=== PATIENT | male | born 1930 | race Two or more races ===

== ENCOUNTER 2017-10-07 20:27 | Inpatient (IN) | payer MEDICARE, OTHER ==
[~2017-10-07] VITALS: Ht 162.6 cm; Wt 66.1 kg
[2017-10-07 20:30] VITALS: BP 140/68
[2017-10-07] MEDS ORDERED: NS 1000ml 1,900 ML IVLG ONE (20:45)
[2017-10-07] MEDS ORDERED: Clindamycin 900mg 50 ML IVPB ONE (20:45)
[2017-10-07 21:00] VITALS: BP 143/49
[2017-10-07 21:13] LABS: BASOPHILS % (AUTO) 0.7 % (0.0-2.0); EOSINOPHILS % (AUTO) 5.1 % (0.0-3.0); HEMATOCRIT 29.6 % (42.0-52.0); HEMOGLOBIN 10.1 G/DL (14.2-18.0); LYMPHOCYTES % (AUTO) 19.7 % (20.0-45.0); MEAN CORPUSCULAR VOLUME 86 FL (80-99); MONOCYTES % (AUTO) 8.7 % (1.0-10.0); NEUTROPHILS % (AUTO) 65.7 % (45.0-75.0); PLATELET COUNT 252 K/UL (150-450); RED BLOOD COUNT 3.44 M/UL (4.70-6.10); RED CELL DISTRIBUTION WIDTH 16.3 % (11.6-14.8)
[2017-10-07 21:22] LABS: INR 2.2 (0.9-1.1)
[2017-10-07 21:23] LABS: ANION GAP 8 mmol/L (5-15); BLOOD UREA NITROGEN 28 mg/dL (7-18); CALCIUM 8.5 MG/DL (8.5-10.1); CARBON DIOXIDE 27 MMOL/L (21-32); CHLORIDE 99 MMOL/L (98-107); CREATININE 2.2 MG/DL (0.55-1.30); SODIUM 134 MMOL/L (136-145)
[2017-10-07 21:33] LABS: ALANINE AMINOTRANSFERASE 16 U/L (12-78); ALBUMIN 2.4 G/DL (3.4-5.0); ALBUMIN/GLOBULIN RATIO 0.5 (1.0-2.7); ALKALINE PHOSPHATASE 121 U/L (46-116); ASPARTATE AMINO TRANSFERASE 26 U/L (15-37); BILIRUBIN,TOTAL 0.7 MG/DL (0.2-1.0); CREATINE KINASE 24 U/L (26-308)
--- NOTE | 2017-10-07 21:37 | Diagnostic Imaging Report ---
EXAM: XR Chest, 1 View CLINICAL HISTORY: DYSPNEA TECHNIQUE: Frontal view of the chest. COMPARISON: No relevant prior studies available. FINDINGS: Lungs: Nonspecific lower lobe consolidations. Interstitial edema is present. Pleural space: Bilateral pleural effusions, right greater than left. No pneumothorax. Heart: Cardiomegaly. Pacemaker leads in place. Mediastinum: No acute or suspicious findings. Bones/joints: No acute or suspicious findings. IMPRESSION: 1. Bilateral pleural effusions, right greater than left. 2. Nonspecific lower lobe consolidations. Atelectasis versus infiltrate. 3. Interstitial edema is present.
--- NOTE | 2017-10-07 21:43 | Emergency Room Report ---
History of Present Illness General Chief Complaint: Dyspnea/Respdistress Source: Patient, Family Member, EMS Present Illness HPI Patient presents with fever. Also has cough and a Smith catheter in. He said difficulty with multiple antibiotic allergies. In addition to that he has severe congestive heart failure. He denies any dyspnea at this time however complains about a cough. He denies any pain at this time. Poor historian. Multiple allergies. On coumadin. Apparently, troponin has been elevated in past. Last admitted 2006 here. Allergies: Coded Allergies: ADHESIVE TAPE (Unverified Allergy, Unknown, 10/07/17) BICALUTAMIDE (Unverified Allergy, Unknown, 10/07/17) CEFAZOLIN (Unverified Allergy, Unknown, 10/07/17) CEPHALEXIN (Unverified Allergy, Unknown, 10/07/17) DOXYCYCLINE (Unverified Allergy, Unknown, 10/07/17) FUROSEMIDE (Unverified Allergy, Unknown, 10/07/17) PENICILLINS (Unverified Allergy, Unknown, 10/07/17) PHENYTOIN (Unverified Allergy, Unknown, 10/07/17) SULFA (SULFONAMIDE ANTIBIOTICS) (Unverified Allergy, Unknown, 10/07/17) VANCOMYCIN (Unverified Allergy, Unknown, 10/07/17) Uncoded Allergies: PIPERACILLIN-TAZOBACTAM (Allergy, Unknown, 10/07/17) Patient History Past Medical History: see triage record Social History: Denies: alcohol use Social History 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 Nursing Documentation: PMH: Agreed; PSxH: Agreed Nursing Documentation-PMH Hx Hypertension: Yes Hx Cancer: Yes - Prostace Ca Review of Systems All Other Systems: limited Physical Exam Vital Signs Date Time Temp Pulse Resp B/P (MAP) Pulse Ox O2 Delivery O2 Flow Rate FiO2 10/07/17 20:21 101.3 73 20 166/52 95 Nasal Cannula 3.0 101.3 Sp02 EP Interpretation: reviewed, abnormal - interpreted as low by me General Appearance: other - sallo, Chronically Ill Head: normocephalic Eyes: bilateral eye normal inspection, bilateral eye PERRL ENT: moist mucus membranes Neck: supple Respiratory: decreased breath sounds, crackles, rales Cardiovascular #1: regular rate, rhythm Cardiovascular #2: 2+ radial (R) Gastrointestinal: normal inspection, normal bowel sounds, non tender, no mass, non-distended Genitourinary: other - smith Musculoskeletal: back normal, normal range of motion, no calf tenderness Neurologic: alert, sensory intact, speech normal, motor weakness - diffuse, oriented - X2 Psychiatric: depressed affect Skin: normal inspection, warm/dry Medical Decision Making Diagnostic Impression: Primary Impression: Sepsis Qualified Codes: A41.9 - Sepsis, unspecified organism Additional Impressions: Elevated troponin CHF (congestive heart failure) Qualified Codes: I50.43 - Acute on chronic combined systolic (congestive) and diastolic (congestive) heart failure Renal insufficiency UTI (urinary tract infection) Qualified Codes: T83.511A - Infection and inflammatory reaction due to indwelling urethral catheter, initial encounter; N39.0 - Urinary tract infection , site not specified ER Course The patient presents with fever. Differential includes sepsis, pneumonia, urinary tract infection amongst others. The fact he has an indwelling Smith makes this a high suspicion. He be evaluated with blood cultures, EKG chest x- ray. He'll be treated with IV hydration and also antibiotics. Family states he has problems with congestive heart failure and therefore IV hydration is terminated before was started. She has multiple drug allergies and therefore we are starting clindamycin and ciprofloxacin. EKG without acute injury. Chest x-ray with bilateral infiltrates and congestive heart failure. White count is normal. Lactate is normal. Urinalysis with too numerous to count white blood cells. + troponin. Discussed aspirin with family. Giving small dose in ED (on Coumadin). Improved with adequate oxygenation on O2. Discussed with Dr. Howard and family. Laboratory Tests Test 10/07/17 20:56 10/07/17 21:40 White Blood Count 9.0 K/UL (4.8-10.8) Red Blood Count 3.44 M/UL (4.70-6.10) L Hemoglobin 10.1 G/DL (14.2-18.0) L Hematocrit 29.6 % (42.0-52.0) L Mean Corpuscular Volume 86 FL (80-99) Mean Corpuscular Hemoglobin 29.4 PG (27.0-31.0) Mean Corpuscular Hemoglobin Concent 34.1 G/DL (32.0-36.0) Red Cell Distribution Width 16.3 % (11.6-14.8) H Platelet Count 252 K/UL (150-450) Mean Platelet Volume 5.7 FL (6.5-10.1) L Neutrophils (%) (Auto) 65.7 % (45.0-75.0) Lymphocytes (%) (Auto) 19.7 % (20.0-45.0) L Monocytes (%) (Auto) 8.7 % (1.0-10.0) Eosinophils (%) (Auto) 5.1 % (0.0-3.0) H Basophils (%) (Auto) 0.7 % (0.0-2.0) Prothrombin Time 23.4 SEC (9.30-11.50) H Prothrombin Time INR 2.2 (0.9-1.1) H PTT 40 SEC (23-33) H Sodium Level 134 MMOL/L (136-145) L Potassium Level 3.0 MMOL/L (3.5-5.1) L Chloride Level 99 MMOL/L (98-107) Carbon Dioxide Level 27 MMOL/L (21-32) Anion Gap 8 mmol/L (5-15) Blood Urea Nitrogen 28 mg/dL (7-18) H Creatinine 2.2 MG/DL (0.55-1.30) H Estimate Glomerular Filtration Rate mL/min (>60) Glucose Level 124 MG/DL (74-106) H Lactic Acid Level 1.60 mmol/L (0.4-2.0) Calcium Level 8.5 MG/DL (8.5-10.1) Total Bilirubin 0.7 MG/DL (0.2-1.0) Aspartate Amino Transferase (AST) 26 U/L (15-37) Alanine Aminotransferase (ALT) 16 U/L (12-78) Alkaline Phosphatase 121 U/L (46-116) H Total Creatine Kinase 24 U/L (26-308) L Troponin I 0.092 ng/mL (0.000-0.056) Pro-B-Type Natriuretic Peptide 40994 pg/mL (0-125) H Total Protein 7.6 G/DL (6.4-8.2) Albumin 2.4 G/DL (3.4-5.0) L Globulin 5.2 g/dL Albumin/Globulin Ratio 0.5 (1.0-2.7) L Urine Color Pale yellow Urine Appearance Slightly cloudy Urine pH 6.5 (4.5-8.0) Urine Specific [place] 1.010 (1.005-1.035) Urine Protein 2+ (NEGATIVE) H Urine Glucose (UA) Negative (NEGATIVE) Urine Ketones Negative (NEGATIVE) Urine Occult Blood 2+ (NEGATIVE) H Urine Nitrite Negative (NEGATIVE) Urine Bilirubin Negative (NEGATIVE) Urine Urobilinogen Normal MG/DL (0.0-1.0) Urine Leukocyte Esterase 3+ (NEGATIVE) H Urine RBC 2-4 /HPF (0 - 0) H Urine WBC Tntc /HPF (0 - 0) H Urine Squamous Epithelial Cells Occasional /LPF Urine Bacteria Occasional /HPF (NONE) EKG Diagnostic Results Rate: normal Rhythm: NSR ST Segments: no acute changes - St infersions inferolaterally Rhythm Strip Diag. Results EP Interpretation: yes Rhythm: NSR, no PVC's, no ectopy Chest X-Ray Diagnostic Results Chest X-Ray Diagnostic Results : Chest X-Ray Ordered: Yes # of Views/Limited/Complete: 1 View Indication: Other EP Interpretation: Yes Interpretation: no pneumothorax, other - inc cor and bilat infiltrates/chf Last Vital Signs Date Time Temp Pulse Resp B/P (MAP) Pulse Ox O2 Delivery O2 Flow Rate FiO2 10/07/17 23:40 99.8 68 24 138/72 100 Nasal Cannula 2.0 99.8 68 Status: improved Disposition: ADMITTED INPATIENT Condition: Serious Referrals: Fernando Howard MD (PCP) Jose Luis Renee M.D. Oct 07, 2017 21:43
[2017-10-07 22:00] VITALS: BP 141/68
[2017-10-07 22:40] LABS: APPEARANCE,URINE SLIGHTLY CLOUDY; BILIRUBIN, URINE NEGATIVE (NEGATIVE); COLOR,URINE PALE YELLOW; GLUCOSE, URINE (UA) NEGATIVE (NEGATIVE); KETONES,URINE NEGATIVE (NEGATIVE); LEUKOCYTE ESTERASE ,URINE 3+ (NEGATIVE); NITRITE,URINE NEGATIVE (NEGATIVE); PH,URINE 6.5 (4.5-8.0); PROTEIN,URINE 2+ (NEGATIVE); UROBILINOGEN,URINE NORMAL MG/DL (0.0-1.0)
[2017-10-07] MEDS ORDERED: Aspirin Baby 81mg ONE (22:54)
[2017-10-07] MEDS: Aspirin Baby 81mg ORAL SCH (22:56)
[2017-10-07 23:00] VITALS: BP 138/72
[2017-10-08] VITALS: BP 125/64
[2017-10-08] MEDS: BETAMETHASONE 0.1% TOPIC SCH (01:00)
[2017-10-08] MEDS ORDERED: LEVOTHYROXINE175 MCG ORAL (01:22)
[2017-10-08] MEDS ORDERED: EDECRIN25 MG ORAL (01:22)
[2017-10-08] MEDS ORDERED: ZYTIGA250 MG ORAL (01:22)
[2017-10-08] MEDS ORDERED: NORVASC2.5 MG ORAL (01:22)
[2017-10-08] MEDS ORDERED: POTASSIUM CHLO20 ME2 ORAL (01:22)
[2017-10-08] MEDS ORDERED: DILTIAZEM 24HR120 M2 PO (01:22)
[2017-10-08] MEDS ORDERED: VITAMIN D250000 UNI1 ORAL (01:22)
[2017-10-08] MEDS ORDERED: LACTULOSE10 GM/154 PO (01:22)
[2017-10-08] MEDS ORDERED: METOPROLOL SUCC50 MG ORAL (01:22)
[2017-10-08] MEDS ORDERED: PREDNISONE5 MG ORAL (01:22)
[2017-10-08] MEDS ORDERED: ZANTAC150 MG ORAL (01:22)
[2017-10-08] MEDS ORDERED: VALACYCLOVIR500 MG ORAL (01:22)
[2017-10-08] MEDS ORDERED: LYRICA150 MG ORAL (01:22)
[2017-10-08] MEDS ORDERED: COUMADIN2.5 MG ORAL (01:22)
[2017-10-08] MEDS ORDERED: DIGOXIN125 MCG ORAL (01:22)
[2017-10-08] MEDS ORDERED: PRAVASTATIN SOD40 M1 ORAL (01:22)
[2017-10-08] MEDS ORDERED: COLACE100 MG ORAL (01:22)
[2017-10-08] MEDS ORDERED: CALCITRIOL0.25 MCG PO (01:22)
[2017-10-08] MEDS ORDERED: TYLENOL EXTRA500 MG ORAL (01:41)
[2017-10-08] MEDS ORDERED: Ipratropium 0.02% Inh Soln 2.5ml UD HHN PRN (02:15)
[2017-10-08] MEDS ORDERED: Vitamin D 50,000 units cap ORAL SCH (02:15)
[2017-10-08] MEDS ORDERED: valACYclovir HCL 500mg tab ORAL SCH (02:15)
[2017-10-08 04:00] VITALS: BP 138/58
[2017-10-08] MEDS ORDERED: Clindamycin 600mg 50 ML IV SCH (06:00)
[2017-10-08 08:00] VITALS: BP 116/45
[2017-10-08] MEDS ORDERED: dilTIAZem HCl CD 120mg cap ORAL SCH (09:00)
[2017-10-08] MEDS ORDERED: Docusate 100mg cap ORAL SCH (09:00)
[2017-10-08] MEDS ORDERED: Calcitriol 0.25mcg Cap ORAL SCH (09:00)
[2017-10-08] MEDS ORDERED: Nephrovite tab (Rena-Vite) ORAL SCH (09:00)
[2017-10-08] MEDS: Lyrica 50mg cap ORAL SCH ×2 (10:12→17:43)
--- NOTE | 2017-10-08 10:13 | Diagnostic Imaging Report ---
Single frontal view INDICATION: Chest pain COMPARISON: Chest x-ray dated 10/07/17 FINDINGS: Single frontal view of the chest is obtained. Stable left chest wall pacemaker. Enlarged cardiac size. Stable small to moderate bilateral pleural effusions. Improved aeration within the lungs with continued demonstration of bilateral lower lung zone opacities. Bony elements are within normal limits. IMPRESSION: Stable left chest wall pacemaker. Enlarged cardiac size. Stable small to moderate bilateral pleural effusions. Improved aeration within the lungs with continued demonstration of bilateral lower lung zone opacities.
[2017-10-08] MEDS ORDERED: Fleet's Mineral Oil Enema RECTAL PRN (10:15)
[2017-10-08] MEDS: Aspirin Baby 81mg ORAL SCH (10:19)
[2017-10-08] MEDS: Digoxin 0.125mg tab ORAL SCH (10:19)
[2017-10-08] MEDS: Metoprolol Succinate XL 50mg tab ORAL SCH ×2 (10:19→17:42)
[2017-10-08] MEDS: Lactulose 20gm/30ml UDC ORAL PRN (11:23)
[2017-10-08 12:00] VITALS: BP 150/81
[2017-10-08] MEDS: Meropenem 500 MG in NS 55 ML IVPB SCH ×2 (13:08→21:28)
--- NOTE | 2017-10-08 14:32 | Consultation ---
Consult Note Consult Note Cardiology for Dr. Lind Full consult dictated # [id number] Dina Fink MD Oct 08, 2017 14:32
[2017-10-08 14:51] LABS: HEMOGLOBIN 8.5 G/DL (14.2-18.0); MEAN CORPUSCULAR VOLUME 87 FL (80-99); PLATELET COUNT 210 K/UL (150-450); RED BLOOD COUNT 2.98 M/UL (4.70-6.10); RED CELL DISTRIBUTION WIDTH 16.3 % (11.6-14.8); WHITE BLOOD COUNT 7.4 K/UL (4.8-10.8)
[2017-10-08 15:03] LABS: ANION GAP 11 mmol/L (5-15); BLOOD UREA NITROGEN 31 mg/dL (7-18); CALCIUM 8.1 MG/DL (8.5-10.1); CARBON DIOXIDE 26 MMOL/L (21-32); CHLORIDE 102 MMOL/L (98-107); CREATININE 2.4 MG/DL (0.55-1.30); PHOSPHORUS 3.7 MG/DL (2.5-4.9); POTASSIUM 3.4 MMOL/L (3.5-5.1); SODIUM 139 MMOL/L (136-145)
[2017-10-08 15:35] LABS: INR 4.1 (0.9-1.1)
[2017-10-08 16:00] VITALS: BP 123/48
--- NOTE | 2017-10-08 16:40 | History and Physical ---
History of Present Illness General Date patient seen: Oct 08, 2017 Reason for Hospitalization: Dyspnea/Respdistress Present Illness Allergies: Coded Allergies: ADHESIVE TAPE (Unverified Allergy, Unknown, 10/07/17) BICALUTAMIDE (Unverified Allergy, Unknown, 10/07/17) CEFAZOLIN (Unverified Allergy, Unknown, 10/07/17) CEPHALEXIN (Unverified Allergy, Unknown, 10/07/17) DOXYCYCLINE (Unverified Allergy, Unknown, 10/07/17) FUROSEMIDE (Unverified Allergy, Unknown, 10/07/17) PENICILLINS (Unverified Allergy, Unknown, 10/07/17) PHENYTOIN (Unverified Allergy, Unknown, 10/07/17) PIPERACILLIN (Unverified Allergy, Unknown, 10/08/17) copied from uncoded section SULFA (SULFONAMIDE ANTIBIOTICS) (Unverified Allergy, Unknown, 10/07/17) TAZOBACTAM (Unverified Allergy, Unknown, 10/08/17) copied from uncoded section VANCOMYCIN (Unverified Allergy, Unknown, 10/07/17) Medication History Scheduled Abiraterone Acetate (Zytiga), 500 MG ORAL DAILY, (Reported) Amlodipine Besylate (Norvasc), 2.5 MG ORAL DAILY, (Reported) Calcitriol (Calcitriol), 0.25 MCG PO DAILY, (Reported) Digoxin* (Digoxin*), 125 MCG ORAL DAILY, (Reported) Docusate Sodium* (Colace*), 100 MG ORAL DAILY, (Reported) Ergocalciferol (Vitamin D2)* (Vitamin D*), 50,000 UNIT ORAL ONCE A WEEK, ( Reported) Ethacrynic Acid* (Edecrin*), 50 MG ORAL TWICE A DAY, (Reported) Levothyroxine Sodium (Levothyroxine Sodium), 75 MCG ORAL DAILY, (Reported) Metoprolol Succinate* (Metoprolol Succinate*), 25 MG ORAL BID, (Reported) Potassium Chloride (Potassium Chloride), 20 MEQ ORAL TWICE A DAY, (Reported) Pravastatin Sod (Pravastatin Sod), 20 MG ORAL BEDTIME, (Reported) Prednisone (Prednisone), 5 MG ORAL DAILY, (Reported) Pregabalin (Lyrica), 50 MG ORAL TWICE A DAY, (Reported) Ranitidine Hcl* (Zantac*), 150 MG ORAL HS, (Reported) Valacyclovir Hcl* (Valtrex*), 250 MG ORAL ONCE A WEEK, (Reported) Warfarin Sod* (Coumadin*), 2.5 MG ORAL HS, (Reported) Scheduled PRN Acetaminophen* (Tylenol Extra Strength*), 650 MG ORAL Q6H PRN for Mild Pain/ Temp > 100.5, (Reported) Lactulose (Lactulose), 10 GM PO for Constipation, (Reported) Miscellaneous Medications Diltiazem HCl (Diltiazem 24HR Cd), 120 MG PO, (Reported) Patient History Healthcare decision maker Resuscitation status Full Code Advanced Directive on File Physical Exam Last 24 Hour Vital Signs Date Time Temp Pulse Resp B/P (MAP) Pulse Ox O2 Delivery O2 Flow Rate FiO2 10/08/17 16:00 61 10/08/17 16:00 97.6 60 21 123/48 98 Nasal Cannula 2.0 97.6 10/08/17 12:00 99.0 115 21 150/81 96 Nasal Cannula 2.0 99.0 10/08/17 12:00 63 10/08/17 10:19 66 116/45 10/08/17 10:19 66 10/08/17 10:18 66 116/45 10/08/17 10:16 66 116/45 10/08/17 08:00 98.0 66 21 116/45 99 Nasal Cannula 2.0 98.0 10/08/17 08:00 65 10/08/17 04:00 62 10/08/17 04:00 97.7 60 20 138/58 94 Nasal Cannula 2.0 97.7 10/08/17 00:00 66 10/08/17 00:00 98.8 72 19 125/64 95 Nasal Cannula 2.0 98.8 10/07/17 23:40 99.8 68 24 138/72 100 Nasal Cannula 2.0 99.8 68 10/07/17 23:00 99.8 68 24 138/72 100 Nasal Cannula 2.0 99.8 10/07/17 22:00 99.7 66 23 141/68 100 Nasal Cannula 2.0 99.7 10/07/17 21:34 102.3 10/07/17 21:00 73 26 Nasal Cannula 2.0 10/07/17 21:00 102.3 71 24 143/49 95 Nasal Cannula 2.0 102.3 10/07/17 20:30 101.0 68 24 140/68 94 Nasal Cannula 101.0 10/07/17 20:21 101.3 73 20 166/52 95 Nasal Cannula 3.0 101.3 Intake and Output 10/07/17 10/08/17 19:00 07:00 Intake Total 480 ml Output Total 450 ml Balance 30 ml Intake Oral 480 ml IV Total 0 ml Output Urine Total 450 ml Laboratory Tests Test 10/07/17 20:56 10/07/17 21:40 10/08/17 14:36 White Blood Count 9.0 K/UL (4.8-10.8) 7.4 K/UL (4.8-10.8) Red Blood Count 3.44 M/UL (4.70-6.10) L 2.98 M/UL (4.70-6.10) L Hemoglobin 10.1 G/DL (14.2-18.0) L 8.5 G/DL (14.2-18.0) L Hematocrit 29.6 % (42.0-52.0) L 26.0 % (42.0-52.0) L Mean Corpuscular Volume 86 FL (80-99) 87 FL (80-99) Mean Corpuscular Hemoglobin 29.4 PG (27.0-31.0) 28.6 PG (27.0-31.0) Mean Corpuscular Hemoglobin Concent 34.1 G/DL (32.0-36.0) 32.8 G/DL (32.0-36.0) Red Cell Distribution Width 16.3 % (11.6-14.8) H 16.3 % (11.6-14.8) H Platelet Count 252 K/UL (150-450) 210 K/UL (150-450) Mean Platelet Volume 5.7 FL (6.5-10.1) L 6.4 FL (6.5-10.1) L Neutrophils (%) (Auto) 65.7 % (45.0-75.0) % (45.0-75.0) Lymphocytes (%) (Auto) 19.7 % (20.0-45.0) L % (20.0-45.0) Monocytes (%) (Auto) 8.7 % (1.0-10.0) % (1.0-10.0) Eosinophils (%) (Auto) 5.1 % (0.0-3.0) H % (0.0-3.0) Basophils (%) (Auto) 0.7 % (0.0-2.0) % (0.0-2.0) Prothrombin Time 23.4 SEC (9.30-11.50) H 43.7 SEC (9.30-11.50) H Prothromb Time International Ratio 2.2 (0.9-1.1) H 4.1 (0.9-1.1) H Activated Partial Thromboplast Time 40 SEC (23-33) H Sodium Level 134 MMOL/L (136-145) L 139 MMOL/L (136-145) Potassium Level 3.0 MMOL/L (3.5-5.1) L 3.4 MMOL/L (3.5-5.1) L Chloride Level 99 MMOL/L (98-107) 102 MMOL/L (98-107) Carbon Dioxide Level 27 MMOL/L (21-32) 26 MMOL/L (21-32) Anion Gap 8 mmol/L (5-15) 11 mmol/L (5-15) Blood Urea Nitrogen 28 mg/dL (7-18) H 31 mg/dL (7-18) H Creatinine 2.2 MG/DL (0.55-1.30) H 2.4 MG/DL (0.55-1.30) H Estimat Glomerular Filtration Rate mL/min (>60) mL/min (>60) Glucose Level 124 MG/DL (74-106) H 168 MG/DL (74-106) H Lactic Acid Level 1.60 mmol/L (0.4-2.0) Calcium Level 8.5 MG/DL (8.5-10.1) 8.1 MG/DL (8.5-10.1) L Total Bilirubin 0.7 MG/DL (0.2-1.0) Aspartate Amino Transf (AST/SGOT) 26 U/L (15-37) Alanine Aminotransferase (ALT/SGPT) 16 U/L (12-78) Alkaline Phosphatase 121 U/L (46-116) H Total Creatine Kinase 24 U/L (26-308) L Troponin I 0.092 ng/mL (0.000-0.056) 0.062 ng/mL (0.000-0.056) Pro-B-Type Natriuretic Peptide 25549 pg/mL (0-125) H Total Protein 7.6 G/DL (6.4-8.2) Albumin 2.4 G/DL (3.4-5.0) L Globulin 5.2 g/dL Albumin/Globulin Ratio 0.5 (1.0-2.7) L Urine Color Pale yellow Urine Appearance Slightly cloudy Urine pH 6.5 (4.5-8.0) Urine Specific [place] 1.010 (1.005-1.035) Urine Protein 2+ (NEGATIVE) H Urine Glucose (UA) Negative (NEGATIVE) Urine Ketones Negative (NEGATIVE) Urine Occult Blood 2+ (NEGATIVE) H Urine Nitrite Negative (NEGATIVE) Urine Bilirubin Negative (NEGATIVE) Urine Urobilinogen Normal MG/DL (0.0-1.0) Urine Leukocyte Esterase 3+ (NEGATIVE) H Urine RBC 2-4 /HPF (0 - 0) H Urine WBC Tntc /HPF (0 - 0) H Urine Squamous Epithelial Cells Occasional /LPF Urine Bacteria Occasional /HPF (NONE) Neutrophils % (Manual) Pending Lymphocytes % (Manual) Pending Platelet Estimate Pending Platelet Morphology Pending Phosphorus Level 3.7 MG/DL (2.5-4.9) Magnesium Level 2.1 MG/DL (1.8-2.4) Digoxin Level 1.1 NG/ML (0.5-2.0) Height (Feet): 5 Height (Inches): 4.00 Weight (Pounds): 138 Medications Current Medications Medications (Trade) Dose Ordered Sig/Bob Route PRN Reason Start Time Stop Time Status Last Admin Dose Admin Acetaminophen (Tylenol) 650 mg Q6H PRN ORAL Mild Pain/Temp > 100.5 10/08/17 02:15 11/07/17 02:14 10/08/17 08:07 Amlodipine Besylate (Norvasc) 2.5 mg DAILY ORAL 10/08/17 09:00 11/07/17 08:59 10/08/17 10:16 Aspirin (ASA) 81 mg DAILY ORAL 10/08/17 09:00 11/07/17 08:59 10/08/17 10:19 Betamethasone Valerate (Diprolene Cream) 1 applic DAILY TOPIC 10/08/17 09:00 11/07/17 08:59 Bisacodyl (Dulcolax) 10 mg DAILYPRN PRN RECTAL Constipation 10/08/17 10:15 11/07/17 10:14 Calcitriol (Rocatrol) 0.25 mcg DAILY ORAL 10/08/17 09:00 11/07/17 08:59 10/08/17 10:18 Digoxin (Lanoxin) 0.125 mg DAILY ORAL 10/08/17 09:00 11/07/17 08:59 10/08/17 10:19 Docusate Sodium (Colace) 100 mg DAILY ORAL 10/08/17 09:00 11/07/17 08:59 10/08/17 10:16 Ergocalciferol (Drisdol) 50,000 intlu We@0900 ORAL 10/12/17 09:00 11/11/17 08:59 Ipratropium [place] (Atrovent) 500 mcg Q4H PRN HHN Shortness of Breath 10/08/17 02:15 10/13/17 02:14 Iron Sucrose 100 mg/Sodium Chloride 60 ml @ 240 mls/hr BEDTIME IV 10/08/17 21:00 10/09/17 21:14 Lactulose (Cephulac) 20 gm DAILY PRN ORAL Constipation 10/08/17 02:15 11/07/17 02:14 10/08/17 11:23 Levothyroxine Sodium (Synthroid) 75 mcg DAILY@0630 ORAL 10/08/17 06:30 11/07/17 06:29 10/08/17 06:13 Meropenem 500 mg/ Sodium Chloride 55 ml @ 110 mls/hr EVERY 12 HOURS IVPB 10/08/17 12:30 10/13/17 12:29 10/08/17 13:08 Metoprolol Succinate (Toprol XL) 25 mg BID ORAL 10/08/17 09:00 11/07/17 08:59 10/08/17 10:19 Mineral Oil (Fleet's Mineral Oil Enema) 133 ml DAILY PRN RECTAL Constipation 10/08/17 10:15 11/07/17 10:14 Patient Own Medication (Patient's Own Med) 1 ea DAILY ORAL 10/08/17 09:00 11/07/17 08:59 Patient Own Medication (Patient's Own Med) 2 ea DAILY@0600 ORAL 10/09/17 06:00 11/08/17 05:59 Pravastatin Sodium (Pravachol) 20 mg BEDTIME ORAL 10/08/17 21:00 11/07/17 20:59 Prednisone (predniSONE) 5 mg DAILY@0600 ORAL 10/09/17 06:00 11/07/17 08:59 Pregabalin (Lyrica) 50 mg TWICE A DAY ORAL 10/08/17 09:00 11/07/17 08:59 10/08/17 10:12 Valacyclovir HCl (Valtrex) 250 mg We@0900 ORAL 10/12/17 09:00 11/11/17 08:59 Vitamin B Complex/ Vit C/Folic Acid (Nephrovite) 1 tab DAILY ORAL 10/08/17 09:00 11/07/17 08:59 10/08/17 10:18 Warfarin Sodium (Coumadin per pharmacy) 1 ea DAILY PRN MISC PER PHARMACY 10/08/17 16:30 11/07/17 16:29 Assessment/Plan Assessment/Plan H & P Dictated [id number] MD Lee Daigle Peiman MD Oct 08, 2017 16:40
[2017-10-08] MEDS ORDERED: Warfarin Sodium 2.5mg ORAL SCH (17:00)
--- NOTE | 2017-10-08 17:02 | Consultation ---
Consult Note Consult Note asked to eval for renal failure HPI Patient presents with fever. Also has cough and a Montgomery catheter in. He said difficulty with multiple antibiotic allergies. In addition to that he has severe congestive heart failure. He denies any dyspnea at this time however complains about a cough. He denies any pain at this time. Poor historian. Multiple allergies. On coumadin. Apparently, troponin has been elevated in past. Last admitted 2006 here. Coded Allergies: ADHESIVE TAPE (Unverified Allergy, Unknown, 10/07/17) BICALUTAMIDE (Unverified Allergy, Unknown, 10/07/17) CEFAZOLIN (Unverified Allergy, Unknown, 10/07/17) CEPHALEXIN (Unverified Allergy, Unknown, 10/07/17) DOXYCYCLINE (Unverified Allergy, Unknown, 10/07/17) FUROSEMIDE (Unverified Allergy, Unknown, 10/07/17) PENICILLINS (Unverified Allergy, Unknown, 10/07/17) PHENYTOIN (Unverified Allergy, Unknown, 10/07/17) SULFA (SULFONAMIDE ANTIBIOTICS) (Unverified Allergy, Unknown, 10/07/17) VANCOMYCIN (Unverified Allergy, Unknown, 10/07/17) Uncoded Allergies: PIPERACILLIN-TAZOBACTAM (Allergy, Unknown, 10/07/17) Hx Hypertension: Yes Hx Cancer: Yes - Prostace Ca Assessment/Plan Acute on Chronic renal failure On coumadin , Anemia Prostate Cancer UTI multiple drug allergies Elevated troponin 2D echo KATHRIN Kidney Monitor renal parameters Monitor H&H avoid nephrotoxics I received a message from Dr Ying at 11.25 pm October 08, to stop following the patient at the request of family because family thinks I am ordering too much tests. I will stop following. Thanks! HANNA HERNÁNDEZ Oct 08, 2017 17:02
--- NOTE | 2017-10-08 17:30 | Consultation ---
DATE OF CONSULTATION: 10/08/2017 CONSULTING PHYSICIAN: Marcelo Griffith M.D. REFERRING PHYSICIAN: Fernando Howard M.D. REASON FOR CONSULTATION: For evaluation of UTI. HISTORY OF PRESENT ILLNESS: This is an 86-year-old male. He has a history of BPH and urinary retention. He has a history of hematuria with an indwelling Montgomery. Apparently, he has had a history of prostate cancer. He was recently at [facility], at which time he had hematuria requiring bladder irrigation. He came to the emergency room because of dyspnea and respiratory distress. He was noted to have UTI. Urology evaluation is requested. Again, he does have an indwelling Montgomery, apparently it was placed about 2 weeks ago at [facility]. His urine has had some cloudiness. PAST MEDICAL HISTORY: Significant for above, also history of hypertension. PAST SURGICAL HISTORY: Unknown. MEDICATIONS: Current medications in the hospital, the patient is on Valtrex, Drisdol, Coumadin, Levaquin, Pravachol, aspirin, Norvasc, Colace, Toprol, prednisone, Lyrica, and Nephro-Alba. He is on Synthroid. He was on Cipro, currently awaiting further antibiotics per ID. ALLERGIES: Multiple, please see chart. SOCIAL HISTORY: Currently, nonsmoker. REVIEW OF SYSTEMS: As above. FAMILY HISTORY: Noncontributory. PHYSICAL EXAMINATION: GENERAL: An elderly male, slightly cachectic, in no acute distress. VITAL SIGNS: Temperature is 97.7, blood pressure is 130/58, pulse is 62 and respirations 20. HEENT: Normocephalic. NECK: Supple. ABDOMEN: Soft. GENITOURINARY: Reveals 22-Khmer 3-way Montgomery catheter in place. The irrigation port was plugged. The urine is yellowish with debris. EXTREMITIES: No clubbing or cyanosis. LABORATORY AND DIAGNOSTIC DATA: BUN 28, creatinine 2.2, and potassium 3.0. His white count is 9.0, hemoglobin 10.1, and platelets of 252. His INR is 2.2. UA showed 2+ protein, 2 to 4 rbc's, and too numerous to count wbc's. Urine culture is pending. Diagnostic imaging studies, the patient had a chest x-ray, which showed pleural effusions. Lower lobe consolidation. There is no renal imaging here. IMPRESSION: 1. BPH history. 2. Urinary retention. 3. Possible neurogenic bladder. 4. History of prostate cancer. 5. Hematuria. 6. Pyuria versus UTI and colonization. 7. Proteinuria. 8. Chronic renal insufficiency. PLAN AND DISCUSSION: Again, the patient does have a large-bore Montgomery catheter indwelling just placed at [facility]. This catheter has been in about 2 weeks. I did irrigate the Montgomery, it is in good position. There are no clots. He does have a positive UA, which is consistent with UTI and colonization because of his chronic Montgomery. At this time, I would recommend to keep the Montgomery catheter indwelling with hand irrigation as needed and antibiotics per recommendation of Infectious Disease. I will review his records at [facility]. We will consider renal imaging studies and at some point he may need to have cystoscopy if it has not been done recently. Thank you, Dr. Howard for asking me to participate in this consultation. Marcelo Griffith M.D. DR: DARRON JOB#: [id number] CC:
[2017-10-08] MEDS: Docusate 100mg cap ORAL SCH (17:41)
--- NOTE | 2017-10-08 19:15 | Consultation ---
DATE OF CONSULTATION: 10/08/2017 INFECTIOUS DISEASE CONSULTATION CONSULTING PHYSICIAN: Denis Ramirez M.D. REFERRING PHYSICIAN: Fernando Howard M.D. REASON FOR CONSULTATION: Urinary tract infection and pneumonia. HISTORY OF PRESENTING ILLNESS: This is an 86-year-old gentleman with history of hypertension, congestive heart failure, and atrial fibrillation as well as prostate cancer who comes in with cough and fever. History has been obtained by discussion with his daughter. He was found to have a urinary tract infection and pneumonia and an Infectious Diseases consultation has been obtained for antibiotics. PAST MEDICAL HISTORY: 1. History of hypertension. 2. Congestive heart failure. 3. Atrial fibrillation. 4. Prostate cancer. 5. Recurrent pleural effusions requiring thoracentesis. MEDICATIONS: As an inpatient, he is on Valtrex, ergocalciferol, warfarin, ciprofloxacin, clindamycin, Levaquin, pravastatin, warfarin, bisacodyl, mineral oil, aspirin, amlodipine, calcitriol, digoxin, diltiazem, docusate, metoprolol, prednisone, Lyrica, vitamin B and C, folic acid, betamethasone cream, levothyroxine, Tylenol, lactulose and Atrovent. ALLERGIES: 1. Adhesive tape. 2. Bicalutamide. 3. Ancef. 4. Keflex. 5. Doxycycline. 6. Lasix. 7. Penicillin. 8. Phenytoin. 9. Piperacillin tazobactam. 10. Sulfa. 11. Vancomycin. SOCIAL HISTORY: He does not smoke, drink, or use drugs. FAMILY HISTORY: Noncontributory. REVIEW OF SYSTEMS: RESPIRATORY: He had fever. He has a cough. No shortness of breath or chest pain. CARDIAC: No chest pain. No palpitations. No dizziness. No syncope. GASTROINTESTINAL: No nausea. No vomiting. No abdominal pain or diarrhea. PHYSICAL EXAMINATION: VITAL SIGNS: Temperature of 97.7 degrees, T-max of 102.3 degrees, pulse of 56, respiratory rate 20, blood pressure 116/45, and O2 saturation of 94%. HEENT: Pupils equally reactive to light and accommodation. Mouth appears clean without thrush. NECK: Supple. No adenopathy. No JVD. CARDIOVASCULAR: Regular rate and rhythm. No murmurs. LUNGS: Clear to auscultation bilaterally. No crackles. No wheezes. ABDOMEN: Soft, nontender. No organomegaly. EXTREMITIES: No cyanosis, no clubbing, and no edema. LABORATORY AND DIAGNOSTIC DATA: White count of 9, hemoglobin 10.1, hematocrit 29.6, MCV 86, and platelet count of 252 with neutrophils of 55%. Sodium 134, potassium 3, chloride 99, bicarbonate 27, BUN 28, creatinine 2.2 and glucose 124. Calcium 8.5. Total bilirubin 0.7. AST 26, ALT 16, and alkaline phosphatase 121. CK of 24. Beta-nitrate peptide 11,527. Total protein 7.6. Albumin 2.4. UA showing too numerous to count white cells and 2 to 4 red cells. Blood cultures are pending. Chest x-ray is showing stable left-sided chest wall pacemaker, small to moderate bilateral pleural effusions, bilateral lower lung zone opacities noted. A 10/07/2017, chest x-ray showed bilateral pleural effusion, right greater than the left. Nonspecific lower lobe consolidations, atelectasis versus infiltrate and interstitial edema noted. ASSESSMENT: This is an 86-year-old gentleman with history of hypertension, congestive heart failure, atrial fibrillation, prostate cancer who now comes in with fever and cough and is found to have 1. Pneumonia. 2. Urinary tract infection. Cultures are pending. 3. Renal failure. 4. Pleural effusion. PLAN: 1. Discontinue ciprofloxacin, clindamycin and Levaquin. 2. We will start the patient on meropenem. The patient's daughter confirms that he can tolerate Invanz. 3. We will order urine cultures. 4. We will order sputum for Gram-stain and culture. 5. We will follow up cultures and adjust antibiotics accordingly. 6. We will also add ultrasound abdomen. I would like to thank, Dr. Howard, for this consultation. Denis Ramirez M.D. DR: TALA JOB#: [id number] CC: Fernando Howard M.D.
[2017-10-08] MEDS: PRESERVISION ORAL SCH (19:37)
--- NOTE | 2017-10-08 20:27 | Consultation ---
Consult Note Assessment/Plan recurrent pleural effusion refused pleurx cath in the past chronic cough due to effusion CHF hypoxemia doubt pna. Roxana Matta DO Oct 08, 2017 20:27
[2017-10-08] MEDS: Venofer 100mg in NS 55ml IV SCH (21:28)
--- NOTE | 2017-10-08 21:59 | Consultation ---
DATE OF CONSULTATION: 10/08/2017 CONSULTING PHYSICIAN: Dina Fink M.D. REASON FOR CONSULT: Atrial fibrillation and elevated troponin level. HISTORY OF PRESENT ILLNESS: History is obtained primarily from the chart and the patient's daughter, as the patient is sedated and unable to give much history. The patient is an 86-year-old white male with a history of hypertension, mitral regurgitation, congestive heart failure, permanent atrial fibrillation, sick sinus syndrome, status post permanent pacemaker placement. He has a chronic indwelling Montgomery. He was brought to the emergency room yesterday with fever, weakness, and anorexia over the three days prior to admission. The family noted the patient had cloudy urine. He has a chronic indwelling Montgomery. They also noted him to have a cough, but no sputum production. PAST MEDICAL HISTORY: As noted above. Also, history of recurrent right pleural effusion, status post thoracentesis about once every two weeks, most recently last Tuesday with removal of 750 mL, history of subdural hematoma, history of TURP, and history of DVT. MEDICATIONS: Valacyclovir 250 mg daily, 50,000 units weekly, warfarin 2.5 mg on Tuesday, Tuesday, and , 1.25 mg Tuesday and Tuesday, and 2.5 mg Tuesday and Tuesday; prednisone 5 mg daily, Pravachol 20 mg daily, meropenem IV every 12 hours, aspirin 81 mg daily, amlodipine 2.5 mg daily, digoxin 0.125 mg daily, diltiazem 120 mg daily, Colace 100 mg daily, metoprolol 25 mg p.o. b.i.d., Lyrica 50 mg b.i.d., Nephro-Alba 1 tablet daily, levothyroxine 75 mcg daily, Tylenol p.r.n., Atrovent p.r.n., and lactulose p.r.n. ALLERGIES: The patient has multiple drug allergies including rashes with cephalosporins and penicillins. Additional allergies are listed to doxycycline, furosemide, and phenytoin. SOCIAL HISTORY: The patient is a nonsmoker (stopped smoking in his 30s) and has no history of alcohol abuse. He lives with his family. PHYSICAL EXAMINATION: GENERAL: Sedated thin white male, in no acute distress. VITAL SIGNS: Blood pressure is 116/45, pulse 62 and regular, respirations 20, and afebrile. HEENT: Normocephalic and atraumatic. Pupils are equal, round, and reactive to light. Oral mucosa are dry. NECK: Supple. There is no jugular venous distention. No carotid bruits. LUNGS: Bibasilar crackles. HEART: Irregular S1 and S2 with no murmur or S3. No rubs. ABDOMEN: Soft, nontender, and nondistended. No palpable mass. EXTREMITIES: No cyanosis, clubbing, or edema. Distal lower extremity pulses are diminished bilaterally. LABORATORY AND DIAGNOSTIC DATA: Potassium 3.0, BUN 28, and creatinine 2.2. Troponin 0.092. ProBNP 11,527. Glucose 124. Hemoglobin 10, white blood count 9000, and platelets 252,000. INR 2.2. Urinalysis, 2+ protein, 2+ blood, 3+ leukocyte esterase, and too numerous to count white blood cells. Chest x-ray shows pacemaker with leads entering from the left, cardiomegaly, and small bilateral pleural effusions. ASSESSMENT AND RECOMMENDATIONS: The patient is an 86-year-old man with history of hypertension, atrial fibrillation, likely permanent, status post permanent pacemaker, CHF, and chronic indwelling Montgomery. He is admitted with fever, weakness, and anorexia. He appears to have a urinary tract infection based on the UA and history of fevers. He has bilateral small pleural effusions and had a cough, he may have pneumonia or bronchitis. With regard to his cardiac status, his troponin is mildly elevated. His EKG shows atrial fibrillation with a ventricular rate of 73 beats per minute, axis +60 degrees, and inferolateral ST and T-wave changes, which are nonspecific. His troponin elevation is likely due to demand ischemia. He does not appear in overt congestive heart failure. He has renal insufficiency, which may be chronic. I will review records from his previous hospitalizations from [facility]. We will continue to trend the troponin levels. We would continue warfarin for paroxysmal atrial fibrillation. We would continue beta-blockers and stop diltiazem, given the negative inotropic effects and the patient's history of congestive heart failure. Further recommendations will be made based on his clinical course. An echo will be obtained to evaluate left ventricular systolic function and valves. Dr. Lind will continue to follow him starting 10/09/2017. Thank you for allowing us to participate in his care. Dina Fink M.D. DR: CONG JOB#: [id number] CC:
--- NOTE | 2017-10-08 22:45 | History and Physical Report ---
DATE OF ADMISSION: 10/07/2017 CHIEF COMPLAINT: Weakness and fever. HISTORY OF PRESENT ILLNESS: This is a very pleasant 86-year-old male with history of metastatic prostate cancer, chronic atrial fibrillation and hypertension who was brought in by ambulance to the ER last night with findings of fever 102.3 degrees, generalized malaise and weakness. The patient had a chest x-ray, which showed bilateral infiltrates as well as pyuria. He has been started on clindamycin and Cipro in coverage of gram-negative positives and anaerobes, as he had multiple drug allergies. The patient is admitted to telemetry for continued care. PAST MEDICAL HISTORY: Significant for metastatic prostate cancer, congestive heart failure, chronic kidney disease, history of frequent UTIs, history of anemia, history of hypertension, history of coronary artery disease status post pacemaker for sick sinus syndrome, history of mitral valve stenosis, history of hyperlipidemia, history of chronic atrial fibrillation, history of hypothyroidism, history of vitamin D deficiency, history of urinary retention, history of eosinophilia of unclear allergy, history of genital herpes infection, history of GERD, history of anxiety and depression. PAST SURGICAL HISTORY: Status post pat hole evacuation of subdural hematoma and history of pacemaker placement. HOME MEDICATIONS: The patient is on prednisone 5 mg daily, Procrit 45 units monthly, last dose 4 days ago, lactulose 15 mL t.i.d. p.r.n., 20 mg nightly, Coumadin 2.5 mg daily, calcitriol 0.25 mcg daily, vitamin D 50,000 units weekly, Edecrin 25 mg b.i.d., Norvasc 2.5 mg daily, potassium chloride 20 mEq b.i.d., betamethasone 0.05% topical cream b.i.d. p.r.n., Cardizem 120 mg daily, levothyroxine 75 mcg daily, Metoprolol-XL 25 mg b.i.d., digoxin 0.125 mg daily, Colace 100 mg daily, Lyrica 15 mg b.i.d., and Valtrex 250 mg weekly. ALLERGIES: Multiple allergies to Casodex, cefazolin, doxycycline, Lasix, sulfa, Dilantin, penicillin, which causes a rash, Zosyn causes a rash, vancomycin causes a rash, cephalexin causes hives and rash, and adhesive tape causing a rash. FAMILY HISTORY: Noncontributory. 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 He is . He has a very supportive family. No smoking, drug or alcohol use. REVIEW OF SYSTEMS: The patient denies any headaches, dizziness, nausea or vomiting. He does have fever and malaise. He has also had a cough for 2 days. No chest pain or palpitations. No nausea or vomiting. No diarrhea. He does have constipation. No melena, hematochezia or hematuria. Denies any heat or cold intolerance. He does have a itchy rash, which is chronic for him. He also has neck pain and left chest wall pain laterally, which is pleuritic in nature. No dysuria, urgency, frequency. He does have an indwelling Montgomery catheter. PHYSICAL EXAMINATION: GENERAL: A thin male, looking younger than stated age, and appears awake. VITAL SIGNS: T-max is 102.3 degrees, T-current is 97.6 degrees, pulse of 60, respiratory rate of 21, blood pressure is 123/48 and saturating 98% on 2 liters nasal cannula. HEENT: Normocephalic and atraumatic. Extraocular muscles are intact. Pupils equal, round, and reactive to light. Anicteric sclerae. Oropharynx is dry. NECK: Supple. CHEST: Diminished breath sounds at the bases. No rales or rhonchi noted. CARDIAC: Normal S1 and S2. No murmurs, rubs, or gallops. ABDOMEN: Bowel sounds are positive. Belly is soft, nontender and nondistended. No hepatosplenomegaly. EXTREMITIES: No clubbing, cyanosis, or edema. NEUROLOGIC: The patient is awake, alert, oriented x4. Cranial nerves II through XII are grossly intact. No sensory or motor deficit appreciated. Reflexes are 1+ symmetric. Gait was not evaluated. SKIN: Clear without rashes or petechiae. LABORATORY AND DIAGNOSTIC DATA: Laboratory evaluation on admission, his hemoglobin is 10.1, hematocrit 29.6, white count is 9, and platelet count is 232 with 5.1% eosinophils. His INR was 2.2, Protime is 23.4, and PTT is 40. His sodium was 134; potassium 3, which is low; chloride 99; carbon dioxide 27; BUN 20; creatinine is 2.2; glucose 124; and calcium 8.5. Total bilirubin 0.7, AST 26, ALT 16, and alkaline phosphatase is 121, slightly high. Total creatine kinase is 12.4. His beta-natriuretic peptide is 11,527. Total protein 7.6. Albumin is low at 2.4. Troponin was elevated at 0.092. Lactic acid was normal at 1.6. His urinalysis is pale yellow, slightly cloudy, specific gravity 6.5, 2+ protein, 2+ occult blood, 3+ leukocyte esterase, white blood cells too numerous to count. The INR was 2.2, this is normal. Digoxin level was 1.1, normal. His chest x-ray shows bilateral pleural effusions, right greater than left. lower lobe consolidation and atelectasis versus infiltrates. Interstitial edema is present. EKG shows paced rhythm. IMPRESSION: This is an 86-year-old male, admitted with fevers with cough and weakness with findings of bilateral infiltrates and urinary tract infection and anemia. The patient will be admitted to telemetry with the following problems. 1. Possible pneumonia, although the patient has no elevated white count or shift in neutrophils. The patient will be started on p.r.n. Atrovent nebulizer treatments. We will restart the patient on IV antibiotics, pending Infectious Disease consult. We will get pulmonary evaluation. The patient does get routine repeat thoracentesis as an outpatient, last one was Tuesday. Consider thoracentesis if indicated. Follow up on cultures. 2. Urinary tract infection. The patient has an indwelling catheter. This should be changed every 2 weeks. The patient has been started on empiric antibiotics until cultures are back. We will get Dr. Griffith to see the patient for Urology and followup. 3. Hypertension. Continue with Cardizem 120 mg daily. Monitor parameters. 4. Chronic kidney disease. We will get Nephrology consult. Monitor the patient while in house. We will supplement potassium p.r.n. 5. Anemia. The patient will have an occult blood. We will check iron panel and consider IV iron. 6. Chronic atrial fibrillation, on Coumadin per pharmacy protocol. Keep INR between 2 and 3. Monitor for any bleeds. The patient has had frequency of gross hematurias in the past. 7. Metastatic prostate cancer. Continue home regimen of medications. We will get Hematology-Oncology consult for followup. 8. History of hyperlipidemia. Continue with Pravachol. Cardiorenal diet will be ordered. 9. Venous thromboembolism prophylaxis. The patient is on Coumadin. 10. The patient is Full Code. Fernando Howard M.D. DR: DEANDRE JOB#: [id number] CC:
[2017-10-08 23:49] VITALS: BP 140/50
[2017-10-09 07:09] LABS: BASOPHILS % (AUTO) 0.4 % (0.0-2.0); EOSINOPHILS % (AUTO) 6.2 % (0.0-3.0); HEMOGLOBIN 8.5 G/DL (14.2-18.0); LYMPHOCYTES % (AUTO) 12.4 % (20.0-45.0); MEAN CORPUSCULAR VOLUME 86 FL (80-99); MONOCYTES % (AUTO) 8.8 % (1.0-10.0); NEUTROPHILS % (AUTO) 72.3 % (45.0-75.0); PLATELET COUNT 209 K/UL (150-450); RED BLOOD COUNT 2.92 M/UL (4.70-6.10); WHITE BLOOD COUNT 6.8 K/UL (4.8-10.8)
[2017-10-09 07:37] LABS: % IRON SATURATION 28 % (15-50); IRON 40 ug/dL (50-175); TOTAL IRON BINDING CAPACITY 143 ug/dL (250-450)
[2017-10-09 07:51] LABS: ALANINE AMINOTRANSFERASE 14 U/L (12-78); ALBUMIN 2.1 G/DL (3.4-5.0); ALBUMIN/GLOBULIN RATIO 0.6 (1.0-2.7); ALKALINE PHOSPHATASE 101 U/L (46-116); ANION GAP 9 mmol/L (5-15); ASPARTATE AMINO TRANSFERASE 20 U/L (15-37); BILIRUBIN,TOTAL 0.3 MG/DL (0.2-1.0); BLOOD UREA NITROGEN 34 mg/dL (7-18); CALCIUM 7.7 MG/DL (8.5-10.1); CARBON DIOXIDE 27 MMOL/L (21-32); CHLORIDE 102 MMOL/L (98-107); CHOLESTEROL 73 MG/DL (< 200); CREATININE 2.5 MG/DL (0.55-1.30); FERRITIN 292 NG/ML (8-388); HDL CHOLESTEROL 30 MG/DL (40-60); POTASSIUM 3.4 MMOL/L (3.5-5.1); SODIUM 138 MMOL/L (136-145); TRIGLYCERIDES 112 MG/DL (30-150)
[2017-10-09 07:54] LABS: GAMMA GLUTAMYL TRANSPEPTIDASE 21 U/L (5-85); PHOSPHORUS 3.8 MG/DL (2.5-4.9)
[2017-10-09 08:00] VITALS: BP 137/54
[2017-10-09] MEDS ORDERED: ETHACRYNIC ACID 25 MG ORAL SCH ×2 (09:00→09:30)
[2017-10-09] MEDS: Meropenem 500 MG in NS 55 ML IVPB SCH ×2 (09:45→20:46)
[2017-10-09] MEDS: Digoxin 0.125mg tab ORAL SCH (09:45)
[2017-10-09] MEDS: BETAMETHASONE 0.1% TOPIC SCH (09:45)
--- NOTE | 2017-10-09 09:47 | Urology Progress Note ---
Assessment/Plan Assessment/Plan 1. BPH history. 2. Urinary retention. 3. Possible neurogenic bladder. 4. History of prostate cancer. 5. Hematuria. 6. Pyuria versus UTI and colonization. 7. Proteinuria. 8. Chronic renal insufficiency. keep smith indwelling hand irrigated and do PRN abx as ordered f/u on urine cx f/u on abdominal u/s cysto later Subjective Allergies: Coded Allergies: ADHESIVE TAPE (Unverified Allergy, Unknown, 10/07/17) BICALUTAMIDE (Unverified Allergy, Unknown, 10/07/17) CEFAZOLIN (Unverified Allergy, Unknown, 10/07/17) CEPHALEXIN (Unverified Allergy, Unknown, 10/07/17) DOXYCYCLINE (Unverified Allergy, Unknown, 10/07/17) FUROSEMIDE (Unverified Allergy, Unknown, 10/07/17) PENICILLINS (Unverified Allergy, Unknown, 10/07/17) PHENYTOIN (Unverified Allergy, Unknown, 10/07/17) PIPERACILLIN (Unverified Allergy, Unknown, 10/08/17) copied from uncoded section SULFA (SULFONAMIDE ANTIBIOTICS) (Unverified Allergy, Unknown, 10/07/17) TAZOBACTAM (Unverified Allergy, Unknown, 10/08/17) copied from uncoded section VANCOMYCIN (Unverified Allergy, Unknown, 10/07/17) Subjective all noted, feels fair Objective Last 24 Hour Vital Signs Date Time Temp Pulse Resp B/P (MAP) Pulse Ox O2 Delivery O2 Flow Rate FiO2 10/09/17 08:00 97.5 60 20 137/54 93 Nasal Cannula 2.0 97.5 10/09/17 04:00 61 10/09/17 00:00 67 10/08/17 23:49 98.2 64 18 140/50 98 Nasal Cannula 2.0 98.2 10/08/17 20:00 64 10/08/17 17:42 61 123/48 10/08/17 16:00 61 10/08/17 16:00 97.6 60 21 123/48 98 Nasal Cannula 2.0 97.6 10/08/17 12:00 99.0 115 21 150/81 96 Nasal Cannula 2.0 99.0 10/08/17 12:00 63 10/08/17 10:19 66 116/45 10/08/17 10:19 66 10/08/17 10:18 66 116/45 10/08/17 10:16 66 116/45 Intake and Output 10/08/17 10/09/17 19:00 07:00 Intake Total 600 ml 200 ml Output Total 400 ml 500 ml Balance 200 ml -300 ml Intake Oral 600 ml 200 ml Output Urine Total 400 ml 500 ml # Bowel Movements 1 Microbiology Date/Time Source Procedure Growth Status 10/07/17 20:56 Blood Blood Culture - Preliminary NO GROWTH AFTER 24 HOURS Resulted 10/08/17 19:00 Sputum Gram Stain - Final Resulted 10/08/17 19:00 Sputum Sputum Culture Pending Resulted Current Medications Medications (Trade) Dose Ordered Sig/Bob Route PRN Reason Start Time Stop Time Status Last Admin Dose Admin Acetaminophen (Tylenol) 650 mg Q6H PRN ORAL Mild Pain/Temp > 100.5 10/08/17 02:15 11/07/17 02:14 10/08/17 08:07 Amlodipine Besylate (Norvasc) 2.5 mg DAILY ORAL 10/08/17 09:00 11/07/17 08:59 10/08/17 10:16 Aspirin (ASA) 81 mg DAILY ORAL 10/08/17 09:00 11/07/17 08:59 10/08/17 10:19 Betamethasone Valerate (Diprolene Cream) 1 applic DAILY TOPIC 10/08/17 09:00 11/07/17 08:59 Bisacodyl (Dulcolax) 10 mg DAILYPRN PRN RECTAL Constipation 10/08/17 10:15 11/07/17 10:14 Digoxin (Lanoxin) 0.125 mg DAILY ORAL 10/08/17 09:00 11/07/17 08:59 10/08/17 10:19 Docusate Sodium (Colace) 100 mg TID ORAL 10/08/17 18:00 11/07/17 08:59 10/08/17 17:41 Ergocalciferol (Drisdol) 50,000 intlu We@0900 ORAL 10/12/17 09:00 11/11/17 08:59 Ipratropium Brixey (Atrovent) 500 mcg Q4H PRN HHN Shortness of Breath 10/08/17 02:15 10/13/17 02:14 Iron Sucrose 100 mg/Sodium Chloride 60 ml @ 240 mls/hr BEDTIME IV 10/08/17 21:00 10/09/17 21:14 10/08/17 21:28 Lactulose (Cephulac) 20 gm DAILY PRN ORAL Constipation 10/08/17 02:15 11/07/17 02:14 10/08/17 11:23 Lansoprazole (Prevacid) 30 mg BID ORAL 10/08/17 18:00 11/07/17 17:59 10/08/17 17:41 Levothyroxine Sodium (Synthroid) 75 mcg DAILY@0630 ORAL 10/08/17 06:30 11/07/17 06:29 10/09/17 06:25 Meropenem 500 mg/ Sodium Chloride 55 ml @ 110 mls/hr EVERY 12 HOURS IVPB 10/08/17 12:30 10/13/17 12:29 10/08/17 21:28 Metoprolol Succinate (Toprol XL) 25 mg BID ORAL 10/08/17 09:00 11/07/17 08:59 10/08/17 17:42 Mineral Oil (Fleet's Mineral Oil Enema) 133 ml DAILY PRN RECTAL Constipation 10/08/17 10:15 11/07/17 10:14 Patient Own Medication (Patient's Own Med) 1 ea DAILY ORAL 10/08/17 09:00 11/07/17 08:59 10/08/17 19:37 Patient Own Medication (Patient's Own Med) 2 ea BID ORAL 10/09/17 09:30 10/09/17 10:30 Patient Own Medication (Patient's Own Med) 2 ea BID ORAL 10/09/17 18:00 11/08/17 08:59 Patient Own Medication (Patient's Own Med) 2 ea DAILY@0600 ORAL 10/09/17 06:00 11/08/17 05:59 10/09/17 06:25 Potassium Chloride (K-Dur) 20 meq TWICE A DAY ORAL 10/09/17 09:00 11/08/17 08:59 Pravastatin Sodium (Pravachol) 20 mg BEDTIME ORAL 10/08/17 21:00 11/07/17 20:59 10/08/17 21:26 Prednisone (predniSONE) 5 mg DAILY@0600 ORAL 10/09/17 06:00 11/07/17 08:59 10/09/17 06:26 Pregabalin (Lyrica) 50 mg TWICE A DAY ORAL 10/08/17 09:00 11/07/17 08:59 10/08/17 17:43 Valacyclovir HCl (Valtrex) 250 mg We@0900 ORAL 10/12/17 09:00 11/11/17 08:59 Warfarin Sodium (Coumadin per pharmacy) 1 ea DAILY PRN MISC PER PHARMACY 10/08/17 16:30 11/07/17 16:29 Laboratory Tests 10/08/17 14:36: White Blood Count 7.4, Red Blood Count 2.98L, Hemoglobin 8.5L, Hematocrit 26.0L , Mean Corpuscular Volume 87, Mean Corpuscular Hemoglobin 28.6, Mean Corpuscular Hemoglobin Concent 32.8, Red Cell Distribution Width 16.3H, Platelet Count 210, Mean Platelet Volume 6.4L, Neutrophils (%) (Auto) , Lymphocytes (%) (Auto) , Monocytes (%) (Auto) , Eosinophils (%) (Auto) , Basophils (%) (Auto) , Differential Total Cells Counted 100, Neutrophils % ( Manual) 88H, Lymphocytes % (Manual) 8L, Monocytes % (Manual) 5, Eosinophils % ( Manual) 1, Basophils % (Manual) 0, Band Neutrophils 0, Platelet Estimate Adequate, Platelet Morphology Normal, Hypochromasia 1+, Anisocytosis 1+, Prothrombin Time 43.7H, Prothromb Time International Ratio 4.1H, Sodium Level 139, Potassium Level 3.4L, Chloride Level 102, Carbon Dioxide Level 26, Anion Gap 11, Blood Urea Nitrogen 31H, Creatinine 2.4H, Estimat Glomerular Filtration Rate , Glucose Level 168H, Calcium Level 8.1L, Phosphorus Level 3.7, Magnesium Level 2.1, Troponin I 0.062H, Digoxin Level 1.1 10/08/17 16:55: C-Reactive Protein, Quantitative 21.7H 10/09/17 06:05: White Blood Count 6.8, Red Blood Count 2.92L, Hemoglobin 8.5L, Hematocrit 25.0L , Mean Corpuscular Volume 86, Mean Corpuscular Hemoglobin 29.2, Mean Corpuscular Hemoglobin Concent 34.1, Red Cell Distribution Width 16.0H, Platelet Count 209, Mean Platelet Volume 6.2L, Neutrophils (%) (Auto) 72.3, Lymphocytes (%) (Auto) 12.4L, Monocytes (%) (Auto) 8.8, Eosinophils (%) (Auto) 6.2H, Basophils (%) (Auto) 0.4, Prothrombin Time 64.2H, Prothromb Time International Ratio 6.0*H, Sodium Level 138, Potassium Level 3.4L, Chloride Level 102, Carbon Dioxide Level 27, Anion Gap 9, Blood Urea Nitrogen 34H, Creatinine 2.5H, Estimat Glomerular Filtration Rate , Glucose Level 106, Calcium Level 7.7L, Phosphorus Level 3.8, Magnesium Level 2.2, Troponin I 0.042 , Digoxin Level 1.0, Hemoglobin A1c 5.2, Uric Acid 9.0H, Iron Level 40L, Total Iron Binding Capacity 143L, Percent Iron Saturation 28, Unsaturated Iron Binding 103L, Ferritin 292, Total Bilirubin 0.3, Gamma Glutamyl Transpeptidase 21, Aspartate Amino Transf (AST/SGOT) 20, Alanine Aminotransferase (ALT/SGPT) 14 , Alkaline Phosphatase 101, Pro-B-Type Natriuretic Peptide 74307N, Total Protein 5.9L, Albumin 2.1L, Globulin 3.8, Albumin/Globulin Ratio 0.6L, Triglycerides Level 112, Cholesterol Level 73, LDL Cholesterol 29, HDL Cholesterol 30L, Cholesterol/HDL Ratio 2.4L, Vitamin B12 Level 1695H, Folate 44.3, Thyroid Stimulating Hormone (TSH) 0.985 10/09/17 07:10: Stool Occult Blood [Pending] Height (Feet): 5 Height (Inches): 4.00 Weight (Pounds): 139 Objective exam stable, urine naomi with some debris BRIANNA HERNADEZ 10, 2018 09:47
[2017-10-09] MEDS: Metoprolol Succinate XL 50mg tab ORAL SCH ×2 (10:06→18:45)
[2017-10-09] MEDS: Lyrica 50mg cap ORAL SCH ×2 (10:06→18:44)
[2017-10-09] MEDS: Docusate 100mg cap ORAL SCH ×3 (10:07→18:43)
[2017-10-09 12:00] VITALS: BP 135/52
[2017-10-09] MEDS: PRESERVISION ORAL SCH (12:34)
--- NOTE | 2017-10-09 13:29 | Diagnostic Imaging Report ---
EXAM: US Abdomen Complete CLINICAL HISTORY: ABSCESS TECHNIQUE: Real-time ultrasound of the abdomen (complete) with image documentation. COMPARISON: No relevant prior studies available. FINDINGS: Liver: Diffusely echogenic liver, suggesting fatty infiltration. Liver diameter of 16.8 cm. No intrahepatic bile duct dilation. Gallbladder: Gallbladder surgically absent. Common bile duct: Common bile duct diameter of 2.1 mm. No stones. No dilation. Pancreas: Unremarkable as visualized. Pancreatic body and tail are obscured by bowel gas. Kidneys: Bilateral renal cortical hypodensities likely represent simple cysts, largest measuring 1.6 cm in the mid left kidney. Right kidney measures 11.9 x 5.0 x 3.3 cm. Left kidney measures 12.2 x 5.7 x 5. 6 cm. No stones. Spleen: Spleen diameter of 9.5 cm is within normal limits. Aorta: Unremarkable. No aneurysm. Inferior vena cava: Unremarkable. IMPRESSION: 1. Diffusely echogenic liver, suggesting fatty infiltration. 2. Bilateral renal cortical hypodensities likely represent simple cysts, largest measuring 1.6 cm in the mid left kidney.
--- NOTE | 2017-10-09 15:32 | Cardiology Progress Note ---
Assessment/Plan Problem List: (1) Presence of permanent cardiac pacemaker (2) Atrial fibrillation Status: stable, unchanged Status Narrative Mr. Woodall c/o cough, mild dyspnea and L CP .He has bilat pl effusions, predominantly R ECHO w/ severe TR, pulm hypertension w/ PA pressures in the 50s, and preserved LV systolic function. He is in AF , w/ INR > therapeutic range Assessment/Plan recommend diuresis, as tolerated by BP, renal function. Consider R thoracentesis Hold warfarin and recheck Inr. Would not reverse warfarin unless develops evidence of bleeding. Subjective ROS Limited/Unobtainable: No Cardiovascular: Reports: chest pain Subjective Cardiology for Dr. Lind Pt reports L sided chest pain. + cough, w minimal sputum production Objective Last 24 Hour Vital Signs Date Time Temp Pulse Resp B/P (MAP) Pulse Ox O2 Delivery O2 Flow Rate FiO2 10/09/17 12:00 97.5 59 20 135/52 98 Nasal Cannula 2.0 97.5 10/09/17 12:00 60 10/09/17 10:07 66 137/54 10/09/17 10:06 66 137/54 10/09/17 09:19 71 20 Room Air 21 10/09/17 08:00 97.5 60 20 137/54 93 Nasal Cannula 2.0 97.5 10/09/17 08:00 64 10/09/17 04:00 61 10/09/17 00:00 67 10/08/17 23:49 98.2 64 18 140/50 98 Nasal Cannula 2.0 98.2 10/08/17 20:00 64 10/08/17 17:42 61 123/48 10/08/17 16:00 61 10/08/17 16:00 97.6 60 21 123/48 98 Nasal Cannula 2.0 97.6 General Appearance: WD/WN, alert, thin Neck: non-tender, supple, no JVD Rhythm: NSR Cardiovascular: normal rate, regular rhythm, systolic murmur - ii/vi DEAN along LSB, other - paced Respiratory/Chest: other - decreased BS at L base. Few crackles R base Abdomen: non tender, soft Extremities: no swelling Intake and Output 10/08/17 10/09/17 19:00 07:00 Intake Total 600 ml 200 ml Output Total 400 ml 500 ml Balance 200 ml -300 ml Intake Oral 600 ml 200 ml Output Urine Total 400 ml 500 ml # Bowel Movements 1 Laboratory Tests Test 10/08/17 16:55 10/09/17 06:05 10/09/17 07:10 C-Reactive Protein, Quantitative 21.7 mg/dL (0.00-0.90) H White Blood Count 6.8 K/UL (4.8-10.8) Red Blood Count 2.92 M/UL (4.70-6.10) L Hemoglobin 8.5 G/DL (14.2-18.0) L Hematocrit 25.0 % (42.0-52.0) L Mean Corpuscular Volume 86 FL (80-99) Mean Corpuscular Hemoglobin 29.2 PG (27.0-31.0) Mean Corpuscular Hemoglobin Concent 34.1 G/DL (32.0-36.0) Red Cell Distribution Width 16.0 % (11.6-14.8) H Platelet Count 209 K/UL (150-450) Mean Platelet Volume 6.2 FL (6.5-10.1) L Neutrophils (%) (Auto) 72.3 % (45.0-75.0) Lymphocytes (%) (Auto) 12.4 % (20.0-45.0) L Monocytes (%) (Auto) 8.8 % (1.0-10.0) Eosinophils (%) (Auto) 6.2 % (0.0-3.0) H Basophils (%) (Auto) 0.4 % (0.0-2.0) Prothrombin Time 64.2 SEC (9.30-11.50) H Prothromb Time International Ratio 6.0 (0.9-1.1) *H Sodium Level 138 MMOL/L (136-145) Potassium Level 3.4 MMOL/L (3.5-5.1) L Chloride Level 102 MMOL/L (98-107) Carbon Dioxide Level 27 MMOL/L (21-32) Anion Gap 9 mmol/L (5-15) Blood Urea Nitrogen 34 mg/dL (7-18) H Creatinine 2.5 MG/DL (0.55-1.30) H Estimat Glomerular Filtration Rate mL/min (>60) Glucose Level 106 MG/DL (74-106) Hemoglobin A1c 5.2 % (4.3-6.0) Uric Acid 9.0 MG/DL (2.6-7.2) H Calcium Level 7.7 MG/DL (8.5-10.1) L Phosphorus Level 3.8 MG/DL (2.5-4.9) Magnesium Level 2.2 MG/DL (1.8-2.4) Iron Level 40 ug/dL (50-175) L Total Iron Binding Capacity 143 ug/dL (250-450) L Percent Iron Saturation 28 % (15-50) Unsaturated Iron Binding 103 ug/dL (112-346) L Ferritin 292 NG/ML (8-388) Total Bilirubin 0.3 MG/DL (0.2-1.0) Gamma Glutamyl Transpeptidase 21 U/L (5-85) Aspartate Amino Transf (AST/SGOT) 20 U/L (15-37) Alanine Aminotransferase (ALT/SGPT) 14 U/L (12-78) Alkaline Phosphatase 101 U/L (46-116) Troponin I 0.042 ng/mL (0.000-0.056) Pro-B-Type Natriuretic Peptide 32705 pg/mL (0-125) H Total Protein 5.9 G/DL (6.4-8.2) L Albumin 2.1 G/DL (3.4-5.0) L Globulin 3.8 g/dL Albumin/Globulin Ratio 0.6 (1.0-2.7) L Triglycerides Level 112 MG/DL (30-150) Cholesterol Level 73 MG/DL (< 200) LDL Cholesterol 29 mg/dL (<100) HDL Cholesterol 30 MG/DL (40-60) L Cholesterol/HDL Ratio 2.4 (3.3-4.4) L Prostate Specific Antigen 119.00 ng/mL (0.13-4.0) H Vitamin B12 Level 1695 PG/ML (193-986) H Folate 44.3 NG/ML (8.6-58.9) Thyroid Stimulating Hormone (TSH) 0.985 uiU/mL (0.358-3.740) Digoxin Level 1.0 NG/ML (0.5-2.0) Stool Occult Blood Negative (NEGATIVE) Microbiology Date/Time Source Procedure Growth Status 10/07/17 20:56 Blood Blood Culture - Preliminary NO GROWTH AFTER 24 HOURS Resulted 10/07/17 20:50 Blood Blood Culture - Preliminary NO GROWTH AFTER 24 HOURS Resulted 10/08/17 19:00 Sputum Gram Stain - Final Resulted 10/08/17 19:00 Sputum Sputum Culture Pending Resulted 10/07/17 21:40 Urine,Clean Catch Urine Culture - Preliminary Gram Positive Cocci Resulted Dina Fink MD Oct 09, 2017 15:32
[2017-10-09 16:00] VITALS: BP 117/45
--- NOTE | 2017-10-09 16:47 | General Progress Note ---
Assessment/Plan Status: doing well Assessment/Plan This is an 86-year-old male, admitted with fevers with cough and weakness with findings of bilateral infiltrates and urinary tract infection and anemia. The patient will be admitted to telemetry with the following problems. 1. Possible pneumonia, although the patient has no elevated white count or shift in neutrophils. The patient will be started on p.r.n. Atrovent nebulizer treatments. We will restart the patient on IV antibiotics, pending Infectious Disease consult. We will get pulmonary evaluation. The patient does get routine repeat thoracentesis as an outpatient, last one was Tuesday. Consider thoracentesis if indicated. Follow up on cultures. 2. Urinary tract infection. The patient has an indwelling catheter. This should be changed every 2 weeks. The patient has been started on empiric antibiotics until cultures are back. We will get Dr. Griffith to see the patient for Urology and followup. 3. Hypertension. Continue with Cardizem 120 mg daily. Monitor parameters. 4. Chronic kidney disease. We will get Nephrology consult. Monitor the patient while in house. We will supplement potassium p.r.n. 5. iron deficiency Anemia. The patient will have an occult blood. We will check iron panel and on IV iron. 6. Chronic atrial fibrillation, on Coumadin per pharmacy protocol. Keep INR between 2 and 3. Monitor for any bleeds. The patient has had frequency of gross hematurias in the past. 7. Metastatic prostate cancer. Continue home regimen of medications. We will get Hematology-Oncology consult for followup. 8. History of hyperlipidemia. Continue with Pravachol. Cardiorenal diet will be ordered. 9. Venous thromboembolism prophylaxis. The patient is on Coumadin. 10. The patient is Full Code. 11. elevated INR: possibly due to cipro given in ER on admission , hold coumadin, hematology eval, INR in am monitor for bleed discussed with nurse and family at bedside Subjective Date patient seen: Oct 09, 2017 ROS Limited/Unobtainable: Yes Allergies: Coded Allergies: ADHESIVE TAPE (Unverified Allergy, Unknown, 10/07/17) BICALUTAMIDE (Unverified Allergy, Unknown, 10/07/17) CEFAZOLIN (Unverified Allergy, Unknown, 10/07/17) CEPHALEXIN (Unverified Allergy, Unknown, 10/07/17) DOXYCYCLINE (Unverified Allergy, Unknown, 10/07/17) FUROSEMIDE (Unverified Allergy, Unknown, 10/07/17) PENICILLINS (Unverified Allergy, Unknown, 10/07/17) PHENYTOIN (Unverified Allergy, Unknown, 10/07/17) PIPERACILLIN (Unverified Allergy, Unknown, 10/08/17) copied from uncoded section SULFA (SULFONAMIDE ANTIBIOTICS) (Unverified Allergy, Unknown, 10/07/17) TAZOBACTAM (Unverified Allergy, Unknown, 10/08/17) copied from uncoded section VANCOMYCIN (Unverified Allergy, Unknown, 10/07/17) Objective Last 24 Hour Vital Signs Date Time Temp Pulse Resp B/P (MAP) Pulse Ox O2 Delivery O2 Flow Rate FiO2 10/09/17 12:00 97.5 59 20 135/52 98 Nasal Cannula 2.0 97.5 10/09/17 12:00 60 10/09/17 10:07 66 137/54 10/09/17 10:06 66 137/54 10/09/17 09:19 71 20 Room Air 21 10/09/17 08:00 97.5 60 20 137/54 93 Nasal Cannula 2.0 97.5 10/09/17 08:00 64 10/09/17 04:00 61 10/09/17 00:00 67 10/08/17 23:49 98.2 64 18 140/50 98 Nasal Cannula 2.0 98.2 10/08/17 20:00 64 10/08/17 17:42 61 123/48 Intake and Output 10/08/17 10/09/17 19:00 07:00 Intake Total 600 ml 200 ml Output Total 400 ml 500 ml Balance 200 ml -300 ml Intake Oral 600 ml 200 ml Output Urine Total 400 ml 500 ml # Bowel Movements 1 Laboratory Tests 10/08/17 16:55: C-Reactive Protein, Quantitative 21.7H 10/09/17 06:05: White Blood Count 6.8, Red Blood Count 2.92L, Hemoglobin 8.5L, Hematocrit 25.0L , Mean Corpuscular Volume 86, Mean Corpuscular Hemoglobin 29.2, Mean Corpuscular Hemoglobin Concent 34.1, Red Cell Distribution Width 16.0H, Platelet Count 209, Mean Platelet Volume 6.2L, Neutrophils (%) (Auto) 72.3, Lymphocytes (%) (Auto) 12.4L, Monocytes (%) (Auto) 8.8, Eosinophils (%) (Auto) 6.2H, Basophils (%) (Auto) 0.4, Prothrombin Time 64.2H, Prothromb Time International Ratio 6.0*H, Sodium Level 138, Potassium Level 3.4L, Chloride Level 102, Carbon Dioxide Level 27, Anion Gap 9, Blood Urea Nitrogen 34H, Creatinine 2.5H, Estimat Glomerular Filtration Rate , Glucose Level 106, Hemoglobin A1c 5.2, Uric Acid 9.0H, Calcium Level 7.7L, Phosphorus Level 3.8, Magnesium Level 2.2, Iron Level 40L, Total Iron Binding Capacity 143L, Percent Iron Saturation 28, Unsaturated Iron Binding 103L, Ferritin 292, Total Bilirubin 0.3, Gamma Glutamyl Transpeptidase 21, Aspartate Amino Transf (AST/ SGOT) 20, Alanine Aminotransferase (ALT/SGPT) 14, Alkaline Phosphatase 101, Troponin I 0.042, Pro-B-Type Natriuretic Peptide 89885J, Total Protein 5.9L, Albumin 2.1L, Globulin 3.8, Albumin/Globulin Ratio 0.6L, Triglycerides Level 112 , Cholesterol Level 73, LDL Cholesterol 29, HDL Cholesterol 30L, Cholesterol/ HDL Ratio 2.4L, Prostate Specific Antigen 119.00H, Vitamin B12 Level 1695H, Folate 44.3, Thyroid Stimulating Hormone (TSH) 0.985, Digoxin Level 1.0 10/09/17 07:10: Stool Occult Blood Negative Height (Feet): 5 Height (Inches): 4.00 Weight (Pounds): 139 General Appearance: no apparent distress, alert EENT: PERRL/EOMI, pharynx normal Neck: non-tender, supple Cardiovascular: normal rate, regular rhythm, no gallop/murmur, no JVD Respiratory/Chest: chest wall non-tender, normal breath sounds, no respiratory distress Abdomen: non tender, soft, no mass Extremities: non-tender, normal inspection, no calf tenderness Edema: no edema noted Arm (L), no edema noted Arm (R), no edema noted Leg (L), no edema noted Leg (R), no edema noted Pedal (L), no edema noted Pedal (R), no edema noted Generalized Neurologic: filer finish II-XII grossly normal, oriented x 3, responsive Skin: warm/dry Lymphatic: normal anterior cervical (L), normal anterior cervical (R), normal posterior cervical (L), normal posterior cervical (R), normal submandibular (L) , normal submandibular (R), normal supraclavicular (L), normal supraclavicular ( R), normal axillary (L), normal axillary (R), normal inguinal (L), normal inguinal (R), normal other Fernando Howard MD Oct 09, 2017 16:47
--- NOTE | 2017-10-09 17:44 | Pulmonology Progress Note ---
Assessment/Plan Assessment/Plan recurrent pleural effusion refused pleurx cath in the past chronic cough due to effusion CHF, poorly controlled hypoxemia doubt pna. UTI with smith abx for UTi will need thoracentsis in near future, but most likely not prior to DC check RA sat again discussed pleurx with family, they refuse. Subjective Constitutional: Reports: no symptoms HEENT: Repors: no symptoms Respiratory: Reports: dry cough Cardiovascular: Reports: no symptoms Gastrointestinal/Abdominal: Reports: no symptoms Allergies: Coded Allergies: ADHESIVE TAPE (Unverified Allergy, Unknown, 10/07/17) BICALUTAMIDE (Unverified Allergy, Unknown, 10/07/17) CEFAZOLIN (Unverified Allergy, Unknown, 10/07/17) CEPHALEXIN (Unverified Allergy, Unknown, 10/07/17) DOXYCYCLINE (Unverified Allergy, Unknown, 10/07/17) FUROSEMIDE (Unverified Allergy, Unknown, 10/07/17) PENICILLINS (Unverified Allergy, Unknown, 10/07/17) PHENYTOIN (Unverified Allergy, Unknown, 10/07/17) PIPERACILLIN (Unverified Allergy, Unknown, 10/08/17) copied from uncoded section SULFA (SULFONAMIDE ANTIBIOTICS) (Unverified Allergy, Unknown, 10/07/17) TAZOBACTAM (Unverified Allergy, Unknown, 10/08/17) copied from uncoded section VANCOMYCIN (Unverified Allergy, Unknown, 10/07/17) Subjective No new events toleration po smith in place on abx refusing pleurx cath Objective Last 24 Hour Vital Signs Date Time Temp Pulse Resp B/P (MAP) Pulse Ox O2 Delivery O2 Flow Rate FiO2 10/09/17 12:00 97.5 59 20 135/52 98 Nasal Cannula 2.0 97.5 10/09/17 12:00 60 10/09/17 10:07 66 137/54 10/09/17 10:06 66 137/54 10/09/17 09:19 71 20 Room Air 21 10/09/17 08:00 97.5 60 20 137/54 93 Nasal Cannula 2.0 97.5 10/09/17 08:00 64 10/09/17 04:00 61 10/09/17 00:00 67 10/08/17 23:49 98.2 64 18 140/50 98 Nasal Cannula 2.0 98.2 10/08/17 20:00 64 Intake and Output 10/08/17 10/09/17 19:00 07:00 Intake Total 600 ml 200 ml Output Total 400 ml 500 ml Balance 200 ml -300 ml Intake Oral 600 ml 200 ml Output Urine Total 400 ml 500 ml # Bowel Movements 1 General Appearance: cachetic HEENT: atraumatic, mucous membranes moist Respiratory/Chest: crackles/rales - reduced bases, other - reduced right base Cardiovascular: normal rate, regular rhythm, murmur systolic Extremities: no cyanosis Neurologic/Psychiatric: no motor/sensory deficits, abnormal gait, alert Lymphatic: no neck adenopathy Musculoskeletal: normal muscle bulk Microbiology Date/Time Source Procedure Growth Status 10/07/17 20:56 Blood Blood Culture - Preliminary NO GROWTH AFTER 24 HOURS Resulted 10/07/17 20:50 Blood Blood Culture - Preliminary NO GROWTH AFTER 24 HOURS Resulted 10/08/17 19:00 Sputum Gram Stain - Final Resulted 10/08/17 19:00 Sputum Sputum Culture Pending Resulted 10/07/17 21:40 Urine,Clean Catch Urine Culture - Preliminary Gram Positive Cocci Resulted Laboratory Tests 10/09/17 06:05: White Blood Count 6.8, Red Blood Count 2.92L, Hemoglobin 8.5L, Hematocrit 25.0L , Mean Corpuscular Volume 86, Mean Corpuscular Hemoglobin 29.2, Mean Corpuscular Hemoglobin Concent 34.1, Red Cell Distribution Width 16.0H, Platelet Count 209, Mean Platelet Volume 6.2L, Neutrophils (%) (Auto) 72.3, Lymphocytes (%) (Auto) 12.4L, Monocytes (%) (Auto) 8.8, Eosinophils (%) (Auto) 6.2H, Basophils (%) (Auto) 0.4, Prothrombin Time 64.2H, Prothromb Time International Ratio 6.0*H, Sodium Level 138, Potassium Level 3.4L, Chloride Level 102, Carbon Dioxide Level 27, Anion Gap 9, Blood Urea Nitrogen 34H, Creatinine 2.5H, Estimat Glomerular Filtration Rate , Glucose Level 106, Hemoglobin A1c 5.2, Uric Acid 9.0H, Calcium Level 7.7L, Phosphorus Level 3.8, Magnesium Level 2.2, Iron Level 40L, Total Iron Binding Capacity 143L, Percent Iron Saturation 28, Unsaturated Iron Binding 103L, Ferritin 292, Total Bilirubin 0.3, Gamma Glutamyl Transpeptidase 21, Aspartate Amino Transf (AST/ SGOT) 20, Alanine Aminotransferase (ALT/SGPT) 14, Alkaline Phosphatase 101, Troponin I 0.042, Pro-B-Type Natriuretic Peptide 16424V, Total Protein 5.9L, Albumin 2.1L, Globulin 3.8, Albumin/Globulin Ratio 0.6L, Triglycerides Level 112 , Cholesterol Level 73, LDL Cholesterol 29, HDL Cholesterol 30L, Cholesterol/ HDL Ratio 2.4L, Prostate Specific Antigen 119.00H, Vitamin B12 Level 1695H, Folate 44.3, Thyroid Stimulating Hormone (TSH) 0.985, Digoxin Level 1.0 10/09/17 07:10: Stool Occult Blood Negative Current Medications Medications (Trade) Dose Ordered Sig/Bob Route PRN Reason Start Time Stop Time Status Last Admin Dose Admin Acetaminophen (Tylenol) 650 mg Q6H PRN ORAL Mild Pain/Temp > 100.5 10/08/17 02:15 11/07/17 02:14 10/08/17 08:07 Amlodipine Besylate (Norvasc) 2.5 mg DAILY ORAL 10/08/17 09:00 11/07/17 08:59 10/09/17 10:07 Aspirin (ASA) 81 mg DAILY ORAL 10/08/17 09:00 11/07/17 08:59 10/08/17 10:19 Betamethasone Valerate (Diprolene Cream) 1 applic DAILY TOPIC 10/08/17 09:00 11/07/17 08:59 Bisacodyl (Dulcolax) 10 mg DAILYPRN PRN RECTAL Constipation 10/08/17 10:15 11/07/17 10:14 Digoxin (Lanoxin) 0.125 mg DAILY ORAL 10/08/17 09:00 11/07/17 08:59 10/08/17 10:19 Docusate Sodium (Colace) 100 mg TID ORAL 10/08/17 18:00 11/07/17 08:59 10/09/17 10:07 Ergocalciferol (Drisdol) 50,000 intlu We@0900 ORAL 10/12/17 09:00 11/11/17 08:59 Ipratropium Magnolia (Atrovent) 500 mcg Q4H PRN HHN Shortness of Breath 10/08/17 02:15 10/13/17 02:14 Iron Sucrose 100 mg/Sodium Chloride 60 ml @ 240 mls/hr BEDTIME IV 10/08/17 21:00 10/09/17 21:14 10/08/17 21:28 Lactulose (Cephulac) 20 gm DAILY PRN ORAL Constipation 10/08/17 02:15 11/07/17 02:14 10/08/17 11:23 Lansoprazole (Prevacid) 30 mg BID ORAL 10/08/17 18:00 11/07/17 17:59 10/08/17 17:41 Levothyroxine Sodium (Synthroid) 75 mcg DAILY@0630 ORAL 10/08/17 06:30 11/07/17 06:29 10/09/17 06:25 Meropenem 500 mg/ Sodium Chloride 55 ml @ 110 mls/hr EVERY 12 HOURS IVPB 10/08/17 12:30 10/13/17 12:29 10/08/17 21:28 Metoprolol Succinate (Toprol XL) 25 mg BID ORAL 10/08/17 09:00 11/07/17 08:59 10/09/17 10:06 Mineral Oil (Fleet's Mineral Oil Enema) 133 ml DAILY PRN RECTAL Constipation 10/08/17 10:15 11/07/17 10:14 Patient Own Medication (Patient's Own Med) 1 ea DAILY ORAL 10/08/17 09:00 11/07/17 08:59 10/09/17 12:34 Patient Own Medication (Patient's Own Med) 2 ea BID ORAL 10/09/17 18:00 11/08/17 08:59 Patient Own Medication (Patient's Own Med) 2 ea DAILY@0600 ORAL 10/09/17 06:00 11/08/17 05:59 10/09/17 06:25 Potassium Chloride (K-Dur) 20 meq TWICE A DAY ORAL 10/09/17 09:00 11/08/17 08:59 10/09/17 10:07 Pravastatin Sodium (Pravachol) 20 mg BEDTIME ORAL 10/08/17 21:00 11/07/17 20:59 10/08/17 21:26 Prednisone (predniSONE) 5 mg DAILY@0600 ORAL 10/09/17 06:00 11/07/17 08:59 10/09/17 06:26 Pregabalin (Lyrica) 50 mg TWICE A DAY ORAL 10/08/17 09:00 11/07/17 08:59 10/09/17 10:06 Valacyclovir HCl (Valtrex) 250 mg We@0900 ORAL 10/12/17 09:00 11/11/17 08:59 Warfarin Sodium (Coumadin per pharmacy) 1 ea DAILY PRN MISC PER PHARMACY 10/08/17 16:30 11/07/17 16:29 Roxana Matta DO Oct 09, 2017 17:44
[2017-10-09] MEDS: ETHACRYNIC ACID 25 MG ORAL SCH (19:11)
[2017-10-09 20:00] VITALS: BP 137/58
[2017-10-09] MEDS: Venofer 100mg in NS 55ml IV SCH (20:46)
--- NOTE | 2017-10-09 23:00 | Consultation ---
DATE OF CONSULTATION: 10/09/2017 NOTE: POOR AUDIO HEMATOLOGY/ONCOLOGY CONSULTATION CONSULTING PHYSICIAN: Jairo Brewster M.D. REQUESTING PHYSICIAN: Fernando Howard M.D. REASON FOR CONSULTATION: Evaluation of anemia and coagulopathy. IDENTIFYING DATA: Dear Dr. Howard: The patient is a pleasant 87-year-old with past medical history significant for metastatic prostate cancer, chronic atrial fibrillation, and hypertension, at this time presents to the ER with elevated fever, generalized malaise, and fatigue. He has been started on clindamycin and Cipro, coverage gram-negative anaerobes and history of multiple allergies. At this time, has coagulopathy, received dose of Coumadin and monitoring closely for any type of bleeding. Hematology Service consulted for further evaluation and treatment. PAST MEDICAL HISTORY: Metastatic prostate cancer, CHF, CKD, frequent UTIs, history of anemia, hypertension, CAD, sick sinus syndrome, history of mitral valve stenosis, eosinophilia, GERD, and depression. PAST SURGICAL HISTORY: Inga hole evacuation of subdural hematoma and history of pacemaker placement. MEDICATIONS: Reviewed. SOCIAL HISTORY: No alcohol, tobacco, or illicit drug use. FAMILY HISTORY: . REVIEW OF SYSTEMS: CONSTITUTIONAL: No fevers, chills, or night sweats. SKIN: No rashes, bumps, or itching. HEENT: No headache, hearing, or vision changes. BREASTS: No lumps, pain, or discharge. PULMONARY: No cough, sputum, or shortness of breath. GASTROINTESTINAL: No nausea, vomiting, or diarrhea. GENITOURINARY: No dysuria, frequency, or urgency. MUSCULOSKELETAL: No joint swelling, muscle pain, or trauma. PHYSICAL EXAMINATION: VITAL SIGNS: Reviewed. GENERAL: No acute distress. LUNGS: Decreased breath sounds. CARDIOVASCULAR: Regular rate. No S3 or S4. ABDOMEN: Soft and nontender. EXTREMITIES: No cyanosis, swelling, or edema. LABORATORY AND DIAGNOSTIC DATA: BUN of 34, creatinine 6.5. INR of 6. Prothrombin time of 64. Imaging reviewed. 0.3. Total protein . ASSESSMENT AND RECOMMENDATIONS: 1. Coagulopathy, likely secondary to Coumadin. Maintain INR between 2 and 3. Hold off on Coumadin at this time. We will hold off on vitamin K as well if the patient shows any evidence of bleeding and/or have a subdural hemorrhage. 2. Anemia due to underlying chronic disease. Closely monitor. 3. Anemia of kidney disease. Nephrology evaluation as needed. 4. Anemia due to hematuria. At this time hold off on any iron given the patient does not have iron deficiency. 5. Metastatic prostate cancer. Reviewed current medications. The patient is on Zytiga. Continue Urology and Oncology followup. I appreciate the consultation. Jairo Brewster M.D. DR: [facility] JOB#: [id number] CC:
[2017-10-10] VITALS: BP 136/51
[2017-10-10 04:00] VITALS: BP 129/62
[2017-10-10 08:00] VITALS: BP 133/49
--- NOTE | 2017-10-10 08:30 | Pulmonology Progress Note ---
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 Basilio Schwarz -Monitor volumes and renal function, keep as negative as able -Thoracentesis @ [facility] after discharge, no urgent need for thoracentesis at this time -PRN HHN's, PRN anti-tussive -SENIOR APPLICATIONS ANALYST eval, aspiration precautions -ABx per ID -DVT Px: A/C -FC Subjective Allergies: Coded Allergies: ADHESIVE TAPE (Unverified Allergy, Unknown, 10/07/17) BICALUTAMIDE (Unverified Allergy, Unknown, 10/07/17) CEFAZOLIN (Unverified Allergy, Unknown, 10/07/17) CEPHALEXIN (Unverified Allergy, Unknown, 10/07/17) DOXYCYCLINE (Unverified Allergy, Unknown, 10/07/17) FUROSEMIDE (Unverified Allergy, Unknown, 10/07/17) PENICILLINS (Unverified Allergy, Unknown, 10/07/17) PHENYTOIN (Unverified Allergy, Unknown, 10/07/17) PIPERACILLIN (Unverified Allergy, Unknown, 10/08/17) copied from uncoded section SULFA (SULFONAMIDE ANTIBIOTICS) (Unverified Allergy, Unknown, 10/07/17) TAZOBACTAM (Unverified Allergy, Unknown, 10/08/17) copied from uncoded section VANCOMYCIN (Unverified Allergy, Unknown, 10/07/17) Subjective AFVSS, stable on 2L, AML pending + 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, unchanged, no SOB, no F/C, weak, flank pain with coughing Objective Last 24 Hour Vital Signs Date Time Temp Pulse Resp B/P (MAP) Pulse Ox O2 Delivery O2 Flow Rate FiO2 10/10/17 04:00 68 10/10/17 04:00 97.7 60 19 129/62 96 Nasal Cannula 2.0 97.7 10/10/17 00:00 66 10/10/17 00:00 96.5 62 20 136/51 96 Nasal Cannula 2.0 96.5 10/09/17 20:00 97.9 77 19 137/58 94 Nasal Cannula 2.0 97.9 10/09/17 19:07 78 20 Room Air 21 10/09/17 18:45 69 117/45 10/09/17 16:00 69 10/09/17 16:00 97.7 69 20 117/45 93 Nasal Cannula 2.0 97.7 10/09/17 12:00 97.5 59 20 135/52 98 Nasal Cannula 2.0 97.5 10/09/17 12:00 60 10/09/17 10:07 66 137/54 10/09/17 10:06 66 137/54 10/09/17 09:19 71 20 Room Air 21 Intake and Output 10/09/17 10/10/17 19:00 07:00 Intake Total 800 ml Output Total 200 ml 700 ml Balance 600 ml -700 ml Intake Oral 800 ml Output Urine Total 200 ml 700 ml General Appearance: WD/WN, no acute distress HEENT: normocephalic, atraumatic, anicteric, mucous membranes moist Respiratory/Chest: chest wall non-tender, lungs clear - but decrease @ R > L base, no respiratory distress, no accessory muscle use Cardiovascular: normal peripheral pulses, normal rate, regular rhythm Abdomen: normal bowel sounds, soft, non tender, no organomegaly, non distended , no mass Extremities: no cyanosis, no clubbing, no edema Microbiology Date/Time Source Procedure Growth Status 10/07/17 20:56 Blood Blood Culture - Preliminary NO GROWTH AFTER 48 HOURS Resulted 10/07/17 20:50 Blood Blood Culture - Preliminary NO GROWTH AFTER 48 HOURS Resulted 10/08/17 19:00 Sputum Gram Stain - Final Complete 10/08/17 19:00 Sputum Sputum Culture - Final NORMAL UPPER RESPIRATORY SAM PRESENT Complete 10/07/17 21:40 Urine,Clean Catch Urine Culture - Final Staphylococcus Epidermidis Complete Laboratory Tests 10/10/17 07:35: Prothrombin Time [Pending], Prothromb Time International Ratio [Pending], Sodium Level [Pending], Potassium Level [Pending], Chloride Level [Pending], Carbon Dioxide Level [Pending], Blood Urea Nitrogen [Pending], Creatinine [ Pending], Estimat Glomerular Filtration Rate [Pending], Glucose Level [Pending] , Calcium Level [Pending], Total Bilirubin [Pending], Aspartate Amino Transf ( AST/SGOT) [Pending], Alanine Aminotransferase (ALT/SGPT) [Pending], Alkaline Phosphatase [Pending], Total Protein [Pending], Albumin [Pending], Globulin [ Pending] Current Medications Medications (Trade) Dose Ordered Sig/Bob Route PRN Reason Start Time Stop Time Status Last Admin Dose Admin Acetaminophen (Tylenol) 650 mg Q6H PRN ORAL Mild Pain/Temp > 100.5 10/08/17 02:15 11/07/17 02:14 10/08/17 08:07 Amlodipine Besylate (Norvasc) 2.5 mg DAILY ORAL 10/08/17 09:00 11/07/17 08:59 10/09/17 10:07 Aspirin (ASA) 81 mg DAILY ORAL 10/08/17 09:00 11/07/17 08:59 10/08/17 10:19 Betamethasone Valerate (Diprolene Cream) 1 applic DAILY TOPIC 10/08/17 09:00 11/07/17 08:59 Bisacodyl (Dulcolax) 10 mg DAILYPRN PRN RECTAL Constipation 10/08/17 10:15 11/07/17 10:14 Digoxin (Lanoxin) 0.125 mg DAILY ORAL 10/08/17 09:00 11/07/17 08:59 10/08/17 10:19 Docusate Sodium (Colace) 100 mg TID ORAL 10/08/17 18:00 11/07/17 08:59 10/09/17 18:43 Ergocalciferol (Drisdol) 50,000 intlu We@0900 ORAL 10/12/17 09:00 11/11/17 08:59 Ipratropium [place] (Atrovent) 500 mcg Q4H PRN HHN Shortness of Breath 10/08/17 02:15 10/13/17 02:14 Lactulose (Cephulac) 20 gm DAILY PRN ORAL Constipation 10/08/17 02:15 11/07/17 02:14 10/08/17 11:23 Lansoprazole (Prevacid) 30 mg BID ORAL 10/08/17 18:00 11/07/17 17:59 10/08/17 17:41 Levothyroxine Sodium (Synthroid) 75 mcg DAILY@0630 ORAL 10/08/17 06:30 11/07/17 06:29 10/10/17 06:35 Meropenem 500 mg/ Sodium Chloride 55 ml @ 110 mls/hr EVERY 12 HOURS IVPB 10/08/17 12:30 10/13/17 12:29 10/08/17 21:28 Metoprolol Succinate (Toprol XL) 25 mg BID ORAL 10/08/17 09:00 11/07/17 08:59 10/09/17 18:45 Mineral Oil (Fleet's Mineral Oil Enema) 133 ml DAILY PRN RECTAL Constipation 10/08/17 10:15 11/07/17 10:14 Patient Own Medication (Patient's Own Med) 1 ea DAILY ORAL 10/08/17 09:00 11/07/17 08:59 10/09/17 12:34 Patient Own Medication (Patient's Own Med) 2 ea BID ORAL 10/09/17 18:00 11/08/17 08:59 10/09/17 19:11 Patient Own Medication (Patient's Own Med) 2 ea DAILY@0600 ORAL 10/09/17 06:00 11/08/17 05:59 10/10/17 05:33 Potassium Chloride (K-Dur) 20 meq TWICE A DAY ORAL 10/09/17 09:00 11/08/17 08:59 10/09/17 18:44 Pravastatin Sodium (Pravachol) 20 mg BEDTIME ORAL 10/08/17 21:00 11/07/17 20:59 10/08/17 21:26 Prednisone (predniSONE) 5 mg DAILY@0600 ORAL 10/09/17 06:00 11/07/17 08:59 10/10/17 05:37 Pregabalin (Lyrica) 50 mg TWICE A DAY ORAL 10/08/17 09:00 11/07/17 08:59 10/09/17 18:44 Valacyclovir HCl (Valtrex) 250 mg We@0900 ORAL 10/12/17 09:00 11/11/17 08:59 Warfarin Sodium (Coumadin per pharmacy) 1 ea DAILY PRN MISC PER PHARMACY 10/08/17 16:30 11/07/17 16:29 Samuel Macdonald MD Oct 10, 2017 08:30
[2017-10-10 08:34] LABS: INR 3.2 (0.9-1.1)
[2017-10-10 09:00] LABS: ALANINE AMINOTRANSFERASE 16 U/L (12-78); ALBUMIN 2.2 G/DL (3.4-5.0); ALBUMIN/GLOBULIN RATIO 0.5 (1.0-2.7); ALKALINE PHOSPHATASE 120 U/L (46-116); ANION GAP 11 mmol/L (5-15); ASPARTATE AMINO TRANSFERASE 24 U/L (15-37); BILIRUBIN,TOTAL 0.5 MG/DL (0.2-1.0); BLOOD UREA NITROGEN 34 mg/dL (7-18); CALCIUM 8.3 MG/DL (8.5-10.1); CARBON DIOXIDE 25 MMOL/L (21-32); CHLORIDE 100 MMOL/L (98-107); CREATININE 2.3 MG/DL (0.55-1.30); POTASSIUM 3.3 MMOL/L (3.5-5.1); SODIUM 136 MMOL/L (136-145)
[2017-10-10] MEDS: BETAMETHASONE 0.1% TOPIC SCH (10:00)
[2017-10-10] MEDS: PRESERVISION ORAL SCH (10:07)
[2017-10-10] MEDS: Docusate 100mg cap ORAL SCH ×3 (10:10→18:48)
[2017-10-10] MEDS: Digoxin 0.125mg tab ORAL SCH (10:11)
[2017-10-10] MEDS: Lyrica 50mg cap ORAL SCH ×2 (10:12→18:48)
[2017-10-10] MEDS: Aspirin Baby 81mg ORAL SCH (10:13)
[2017-10-10] MEDS: Meropenem 500 MG in NS 55 ML IVPB SCH (10:20)
[2017-10-10] MEDS: Metoprolol Succinate XL 50mg tab ORAL SCH (10:27)
[2017-10-10] MEDS: ETHACRYNIC ACID 25 MG ORAL SCH ×2 (10:33→18:59)
--- NOTE | 2017-10-10 11:08 | General Progress Note ---
Assessment/Plan Status: stable Assessment/Plan 1. Coagulopathy, likely secondary to Coumadin. --> Maintain INR between 2 and 3. Hold off on Coumadin at this time. We will hold off on vitamin K as well if the patient shows any evidence of bleeding and/ or have a subdural hemorrhage. 2. Anemia due to underlying chronic disease. Closely monitor. 3. Anemia of kidney disease. Nephrology evaluation as needed. 4. Anemia due to hematuria. At this time hold off on any iron given the patient does not have iron deficiency. 5. Metastatic prostate cancer. Reviewed current medications. The patient is on Zytiga. Continue Urology and Oncology followup. Subjective Date patient seen: Oct 10, 2017 Allergies: Coded Allergies: ADHESIVE TAPE (Unverified Allergy, Unknown, 10/07/17) BICALUTAMIDE (Unverified Allergy, Unknown, 10/07/17) CEFAZOLIN (Unverified Allergy, Unknown, 10/07/17) CEPHALEXIN (Unverified Allergy, Unknown, 10/07/17) DOXYCYCLINE (Unverified Allergy, Unknown, 10/07/17) FUROSEMIDE (Unverified Allergy, Unknown, 10/07/17) PENICILLINS (Unverified Allergy, Unknown, 10/07/17) PHENYTOIN (Unverified Allergy, Unknown, 10/07/17) PIPERACILLIN (Unverified Allergy, Unknown, 10/08/17) copied from uncoded section SULFA (SULFONAMIDE ANTIBIOTICS) (Unverified Allergy, Unknown, 10/07/17) TAZOBACTAM (Unverified Allergy, Unknown, 10/08/17) copied from uncoded section VANCOMYCIN (Unverified Allergy, Unknown, 10/07/17) All Systems: reviewed and negative except above Subjective AFVSS, stable on 2L, AML pending + 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, 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, no SOB, no F/C, weak, flank pain with coughing Objective Last 24 Hour Vital Signs Date Time Temp Pulse Resp B/P (MAP) Pulse Ox O2 Delivery O2 Flow Rate FiO2 10/10/17 10:28 89 133/49 10/10/17 10:27 89 133/49 10/10/17 10:11 89 10/10/17 08:00 97.7 89 20 133/49 95 Nasal Cannula 2.0 97.7 10/10/17 04:00 68 10/10/17 04:00 97.7 60 19 129/62 96 Nasal Cannula 2.0 97.7 10/10/17 00:00 66 10/10/17 00:00 96.5 62 20 136/51 96 Nasal Cannula 2.0 96.5 10/09/17 20:00 97.9 77 19 137/58 94 Nasal Cannula 2.0 97.9 10/09/17 19:07 78 20 Room Air 21 10/09/17 18:45 69 117/45 10/09/17 16:00 69 10/09/17 16:00 97.7 69 20 117/45 93 Nasal Cannula 2.0 97.7 10/09/17 12:00 97.5 59 20 135/52 98 Nasal Cannula 2.0 97.5 10/09/17 12:00 60 Intake and Output 10/09/17 10/10/17 19:00 07:00 Intake Total 800 ml Output Total 200 ml 700 ml Balance 600 ml -700 ml Intake Oral 800 ml Output Urine Total 200 ml 700 ml Laboratory Tests 10/10/17 07:35: Prothrombin Time 33.9H, Prothromb Time International Ratio 3.2H, Sodium Level 136, Potassium Level 3.3L, Chloride Level 100, Carbon Dioxide Level 25, Anion Gap 11, Blood Urea Nitrogen 34H, Creatinine 2.3H, Estimat Glomerular Filtration Rate , Glucose Level 120H, Calcium Level 8.3L, Total Bilirubin 0.5, Aspartate Amino Transf (AST/SGOT) 24, Alanine Aminotransferase (ALT/SGPT) 16, Alkaline Phosphatase 120H, Total Protein 7.0, Albumin 2.2L, Globulin 4.8, Albumin/ Globulin Ratio 0.5L Height (Feet): 5 Height (Inches): 4.00 Weight (Pounds): 0 General Appearance: WD/WN, no apparent distress EENT: PERRL/EOMI Neck: supple Cardiovascular: normal peripheral pulses Respiratory/Chest: normal breath sounds Abdomen: normal bowel sounds Jairo Brewster MD Oct 10, 2017 11:08
--- NOTE | 2017-10-10 11:15 | Infectious Diseases Prog Note ---
Assessment/Plan Assessment/Plan antibiotics ; meropenem 10.10.17 - A 1. pneumonia 2. UTI 3. renal failure improving 4. CHF 5. atrial fibrillation P 1. continue meropenem 2. will follow up cultures Subjective ROS Limited/Unobtainable: Yes Allergies: Coded Allergies: ADHESIVE TAPE (Unverified Allergy, Unknown, 10/07/17) BICALUTAMIDE (Unverified Allergy, Unknown, 10/07/17) CEFAZOLIN (Unverified Allergy, Unknown, 10/07/17) CEPHALEXIN (Unverified Allergy, Unknown, 10/07/17) DOXYCYCLINE (Unverified Allergy, Unknown, 10/07/17) FUROSEMIDE (Unverified Allergy, Unknown, 10/07/17) PENICILLINS (Unverified Allergy, Unknown, 10/07/17) PHENYTOIN (Unverified Allergy, Unknown, 10/07/17) PIPERACILLIN (Unverified Allergy, Unknown, 10/08/17) copied from uncoded section SULFA (SULFONAMIDE ANTIBIOTICS) (Unverified Allergy, Unknown, 10/07/17) TAZOBACTAM (Unverified Allergy, Unknown, 10/08/17) copied from uncoded section VANCOMYCIN (Unverified Allergy, Unknown, 10/07/17) Objective Vital Signs Last 24 Hour Vital Signs Date Time Temp Pulse Resp B/P (MAP) Pulse Ox O2 Delivery O2 Flow Rate FiO2 10/10/17 10:28 89 133/49 10/10/17 10:27 89 133/49 10/10/17 10:11 89 10/10/17 08:00 97.7 89 20 133/49 95 Nasal Cannula 2.0 97.7 10/10/17 04:00 68 10/10/17 04:00 97.7 60 19 129/62 96 Nasal Cannula 2.0 97.7 10/10/17 00:00 66 10/10/17 00:00 96.5 62 20 136/51 96 Nasal Cannula 2.0 96.5 10/09/17 20:00 97.9 77 19 137/58 94 Nasal Cannula 2.0 97.9 10/09/17 19:07 78 20 Room Air 21 10/09/17 18:45 69 117/45 10/09/17 16:00 69 10/09/17 16:00 97.7 69 20 117/45 93 Nasal Cannula 2.0 97.7 10/09/17 12:00 97.5 59 20 135/52 98 Nasal Cannula 2.0 97.5 10/09/17 12:00 60 Height (Feet): 5 Height (Inches): 4.00 Weight (Pounds): 0 Respiratory/Chest: lungs clear Cardiovascular: normal rate, regular rhythm, no gallop/murmur Abdomen: soft, non tender Extremities: no edema Microbiology Date/Time Source Procedure Growth Status 10/07/17 20:56 Blood Blood Culture - Preliminary NO GROWTH AFTER 48 HOURS Resulted 10/07/17 20:50 Blood Blood Culture - Preliminary NO GROWTH AFTER 48 HOURS Resulted 10/08/17 19:00 Sputum Gram Stain - Final Complete 10/08/17 19:00 Sputum Sputum Culture - Final NORMAL UPPER RESPIRATORY SAM PRESENT Complete 10/07/17 21:40 Urine,Clean Catch Urine Culture - Final Staphylococcus Epidermidis Complete Laboratory Tests Test 10/10/17 07:35 Prothrombin Time 33.9 SEC (9.30-11.50) H Prothromb Time International Ratio 3.2 (0.9-1.1) H Sodium Level 136 MMOL/L (136-145) Potassium Level 3.3 MMOL/L (3.5-5.1) L Chloride Level 100 MMOL/L (98-107) Carbon Dioxide Level 25 MMOL/L (21-32) Anion Gap 11 mmol/L (5-15) Blood Urea Nitrogen 34 mg/dL (7-18) H Creatinine 2.3 MG/DL (0.55-1.30) H Estimat Glomerular Filtration Rate mL/min (>60) Glucose Level 120 MG/DL (74-106) H Calcium Level 8.3 MG/DL (8.5-10.1) L Total Bilirubin 0.5 MG/DL (0.2-1.0) Aspartate Amino Transf (AST/SGOT) 24 U/L (15-37) Alanine Aminotransferase (ALT/SGPT) 16 U/L (12-78) Alkaline Phosphatase 120 U/L (46-116) H Total Protein 7.0 G/DL (6.4-8.2) Albumin 2.2 G/DL (3.4-5.0) L Globulin 4.8 g/dL Albumin/Globulin Ratio 0.5 (1.0-2.7) L Current Medications Medications (Trade) Dose Ordered Sig/Bob Route PRN Reason Start Time Stop Time Status Last Admin Dose Admin Acetaminophen (Tylenol) 650 mg Q6H PRN ORAL Mild Pain/Temp > 100.5 10/08/17 02:15 11/07/17 02:14 10/08/17 08:07 Amlodipine Besylate (Norvasc) 2.5 mg DAILY ORAL 10/08/17 09:00 11/07/17 08:59 10/10/17 10:28 Aspirin (ASA) 81 mg DAILY ORAL 10/08/17 09:00 11/07/17 08:59 10/10/17 10:13 Betamethasone Valerate (Diprolene Cream) 1 applic DAILY TOPIC 10/08/17 09:00 11/07/17 08:59 Bisacodyl (Dulcolax) 10 mg DAILYPRN PRN RECTAL Constipation 10/08/17 10:15 11/07/17 10:14 Digoxin (Lanoxin) 0.125 mg DAILY ORAL 10/08/17 09:00 11/07/17 08:59 10/10/17 10:11 Docusate Sodium (Colace) 100 mg TID ORAL 10/08/17 18:00 11/07/17 08:59 10/10/17 10:10 Ergocalciferol (Drisdol) 50,000 intlu We@0900 ORAL 10/12/17 09:00 11/11/17 08:59 Ipratropium [place] (Atrovent) 500 mcg Q4H PRN HHN Shortness of Breath 10/08/17 02:15 10/13/17 02:14 Lactulose (Cephulac) 20 gm DAILY PRN ORAL Constipation 10/08/17 02:15 11/07/17 02:14 10/08/17 11:23 Lansoprazole (Prevacid) 30 mg BID ORAL 10/08/17 18:00 11/07/17 17:59 10/10/17 10:13 Levothyroxine Sodium (Synthroid) 75 mcg DAILY@0630 ORAL 10/08/17 06:30 11/07/17 06:29 10/10/17 06:35 Meropenem 500 mg/ Sodium Chloride 55 ml @ 110 mls/hr EVERY 12 HOURS IVPB 10/08/17 12:30 10/13/17 12:29 10/08/17 21:28 Metoprolol Succinate (Toprol XL) 25 mg BID ORAL 10/08/17 09:00 11/07/17 08:59 10/10/17 10:27 Mineral Oil (Fleet's Mineral Oil Enema) 133 ml DAILY PRN RECTAL Constipation 10/08/17 10:15 11/07/17 10:14 Patient Own Medication (Patient's Own Med) 1 ea DAILY ORAL 10/08/17 09:00 11/07/17 08:59 10/10/17 10:07 Patient Own Medication (Patient's Own Med) 2 ea BID ORAL 10/09/17 18:00 11/08/17 08:59 10/10/17 10:33 Patient Own Medication (Patient's Own Med) 2 ea DAILY@0600 ORAL 10/09/17 06:00 11/08/17 05:59 10/10/17 10:23 Potassium Chloride (K-Dur) 20 meq TWICE A DAY ORAL 10/09/17 09:00 11/08/17 08:59 10/10/17 10:09 Pravastatin Sodium (Pravachol) 20 mg BEDTIME ORAL 10/08/17 21:00 11/07/17 20:59 10/08/17 21:26 Prednisone (predniSONE) 5 mg DAILY@0600 ORAL 10/09/17 06:00 11/07/17 08:59 10/10/17 05:37 Pregabalin (Lyrica) 50 mg TWICE A DAY ORAL 10/08/17 09:00 11/07/17 08:59 10/10/17 10:12 Valacyclovir HCl (Valtrex) 250 mg We@0900 ORAL 10/12/17 09:00 11/11/17 08:59 Warfarin Sodium (Coumadin per pharmacy) 1 ea DAILY PRN MISC PER PHARMACY 10/08/17 16:30 11/07/17 16:29 BENNIE GARCIA Oct 10, 2017 11:15
[2017-10-10] MEDS: Lactulose 20gm/30ml UDC ORAL PRN (11:36)
[2017-10-10 12:00] VITALS: BP 157/49
--- NOTE | 2017-10-10 14:54 | Urology Progress Note ---
Assessment/Plan Assessment/Plan 1. BPH history. 2. Urinary retention. 3. Possible neurogenic bladder. 4. History of prostate cancer. 5. Hematuria. 6. Pyuria versus UTI and colonization. 7. Proteinuria. 8. Chronic renal insufficiency. 9. Renal cyst. keep smith indwelling hand irrigated and do PRN abx as ordered cysto later d/w pt's daughter extensively Subjective Allergies: Coded Allergies: ADHESIVE TAPE (Unverified Allergy, Unknown, 10/07/17) BICALUTAMIDE (Unverified Allergy, Unknown, 10/07/17) CEFAZOLIN (Unverified Allergy, Unknown, 10/07/17) CEPHALEXIN (Unverified Allergy, Unknown, 10/07/17) DOXYCYCLINE (Unverified Allergy, Unknown, 10/07/17) FUROSEMIDE (Unverified Allergy, Unknown, 10/07/17) PENICILLINS (Unverified Allergy, Unknown, 10/07/17) PHENYTOIN (Unverified Allergy, Unknown, 10/07/17) PIPERACILLIN (Unverified Allergy, Unknown, 10/08/17) copied from uncoded section SULFA (SULFONAMIDE ANTIBIOTICS) (Unverified Allergy, Unknown, 10/07/17) TAZOBACTAM (Unverified Allergy, Unknown, 10/08/17) copied from uncoded section VANCOMYCIN (Unverified Allergy, Unknown, 10/07/17) Subjective all noted, feels fair Objective Last 24 Hour Vital Signs Date Time Temp Pulse Resp B/P (MAP) Pulse Ox O2 Delivery O2 Flow Rate FiO2 10/10/17 12:00 97.9 79 20 157/49 97 Nasal Cannula 2.0 97.9 10/10/17 10:28 89 133/49 10/10/17 10:27 89 133/49 10/10/17 10:11 89 10/10/17 08:42 71 22 Nasal Cannula 2.0 28 10/10/17 08:42 Nasal Cannula 2.0 28 10/10/17 08:42 95 Nasal Cannula 2.0 28 10/10/17 08:00 97.7 89 20 133/49 95 Nasal Cannula 2.0 97.7 10/10/17 07:41 69 10/10/17 04:00 68 10/10/17 04:00 97.7 60 19 129/62 96 Nasal Cannula 2.0 97.7 10/10/17 00:00 66 10/10/17 00:00 96.5 62 20 136/51 96 Nasal Cannula 2.0 96.5 10/09/17 20:00 97.9 77 19 137/58 94 Nasal Cannula 2.0 97.9 10/09/17 19:07 78 20 Room Air 21 10/09/17 18:45 69 117/45 10/09/17 16:00 69 10/09/17 16:00 97.7 69 20 117/45 93 Nasal Cannula 2.0 97.7 Intake and Output 10/09/17 10/10/17 19:00 07:00 Intake Total 800 ml Output Total 200 ml 700 ml Balance 600 ml -700 ml Intake Oral 800 ml Output Urine Total 200 ml 700 ml Microbiology Date/Time Source Procedure Growth Status 10/07/17 20:56 Blood Blood Culture - Preliminary NO GROWTH AFTER 48 HOURS Resulted 10/08/17 19:00 Sputum Gram Stain - Final Complete 10/08/17 19:00 Sputum Sputum Culture - Final NORMAL UPPER RESPIRATORY SAM PRESENT Complete 10/07/17 21:40 Urine,Clean Catch Urine Culture - Final Staphylococcus Epidermidis Complete Current Medications Medications (Trade) Dose Ordered Sig/Bob Route PRN Reason Start Time Stop Time Status Last Admin Dose Admin Acetaminophen (Tylenol) 650 mg Q6H PRN ORAL Mild Pain/Temp > 100.5 10/08/17 02:15 11/07/17 02:14 10/08/17 08:07 Amlodipine Besylate (Norvasc) 2.5 mg DAILY ORAL 10/08/17 09:00 11/07/17 08:59 10/10/17 10:28 Aspirin (ASA) 81 mg DAILY ORAL 10/08/17 09:00 11/07/17 08:59 10/10/17 10:13 Betamethasone Valerate (Diprolene Cream) 1 applic DAILY TOPIC 10/08/17 09:00 11/07/17 08:59 Bisacodyl (Dulcolax) 10 mg DAILYPRN PRN RECTAL Constipation 10/08/17 10:15 11/07/17 10:14 Digoxin (Lanoxin) 0.125 mg DAILY ORAL 10/08/17 09:00 11/07/17 08:59 10/10/17 10:11 Docusate Sodium (Colace) 100 mg TID ORAL 10/08/17 18:00 11/07/17 08:59 10/10/17 13:37 Ergocalciferol (Drisdol) 50,000 intlu We@0900 ORAL 10/12/17 09:00 11/11/17 08:59 Ipratropium [place] (Atrovent) 500 mcg Q4H PRN HHN Shortness of Breath 10/08/17 02:15 10/13/17 02:14 Lactulose (Cephulac) 20 gm DAILY PRN ORAL Constipation 10/08/17 02:15 11/07/17 02:14 10/10/17 11:36 Lansoprazole (Prevacid) 30 mg BID ORAL 10/08/17 18:00 11/07/17 17:59 10/10/17 10:13 Levothyroxine Sodium (Synthroid) 75 mcg DAILY@0630 ORAL 10/08/17 06:30 11/07/17 06:29 10/10/17 06:35 Meropenem 500 mg/ Sodium Chloride 55 ml @ 110 mls/hr EVERY 12 HOURS IVPB 10/08/17 12:30 10/13/17 12:29 10/08/17 21:28 Metoprolol Succinate (Toprol XL) 25 mg BID ORAL 10/10/17 18:00 11/09/17 17:59 Mineral Oil (Fleet's Mineral Oil Enema) 133 ml DAILY PRN RECTAL Constipation 10/08/17 10:15 11/07/17 10:14 Patient Own Medication (Patient's Own Med) 1 ea DAILY ORAL 10/08/17 09:00 11/07/17 08:59 10/10/17 10:07 Patient Own Medication (Patient's Own Med) 2 ea BID ORAL 10/09/17 18:00 11/08/17 08:59 10/10/17 10:33 Patient Own Medication (Patient's Own Med) 2 ea DAILY@0600 ORAL 10/09/17 06:00 11/08/17 05:59 10/10/17 10:23 Potassium Chloride (K-Dur) 20 meq TWICE A DAY ORAL 10/09/17 09:00 11/08/17 08:59 10/10/17 10:09 Pravastatin Sodium (Pravachol) 20 mg BEDTIME ORAL 10/08/17 21:00 11/07/17 20:59 10/08/17 21:26 Prednisone (predniSONE) 5 mg DAILY@0600 ORAL 10/09/17 06:00 11/07/17 08:59 10/10/17 05:37 Pregabalin (Lyrica) 50 mg TWICE A DAY ORAL 10/08/17 09:00 11/07/17 08:59 10/10/17 10:12 Valacyclovir HCl (Valtrex) 250 mg We@0900 ORAL 10/12/17 09:00 11/11/17 08:59 Warfarin Sodium (Coumadin per pharmacy) 1 ea DAILY PRN MISC PER PHARMACY 10/08/17 16:30 11/07/17 16:29 Laboratory Tests 10/10/17 07:35: Prothrombin Time 33.9H, Prothromb Time International Ratio 3.2H, Sodium Level 136, Potassium Level 3.3L, Chloride Level 100, Carbon Dioxide Level 25, Anion Gap 11, Blood Urea Nitrogen 34H, Creatinine 2.3H, Estimat Glomerular Filtration Rate , Glucose Level 120H, Calcium Level 8.3L, Total Bilirubin 0.5, Aspartate Amino Transf (AST/SGOT) 24, Alanine Aminotransferase (ALT/SGPT) 16, Alkaline Phosphatase 120H, Total Protein 7.0, Albumin 2.2L, Globulin 4.8, Albumin/ Globulin Ratio 0.5L Height (Feet): 5 Height (Inches): 4.00 Weight (Pounds): 0 Objective exam stable, urine naomi with some debris abdominal u/s (10/09) noted BRIANNA HERNADEZ Oct 10, 2017 14:54
[2017-10-10 16:00] VITALS: BP 138/43
[2017-10-10] MEDS ORDERED: Warfarin Sodium 2.5mg ORAL SCH (17:00)
[2017-10-10] MEDS ORDERED: Metoprolol Succinate XL 25mg tab ORAL SCH (18:00)
--- NOTE | 2017-10-10 19:30 | Cardiology Progress Note ---
Assessment/Plan Assessment/Plan recurrent pelural effusion pulm htn TR perm afib sss s/p ppi metastatic prostate cancer sepsis ckd htn hr seem controlled bp seems fine is off Cardizem dcd by reggie salmon is on norvasc as well ? 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 likey renal insuf adn demand related to fu with usual card dr elder once dcd Subjective Cardiovascular: Denies: chest pain, lightheadedness, palpitations Respiratory: Reports: shortness of breath, SOB with excertion Gastrointestinal/Abdominal: Denies: abdominal pain Genitourinary: Denies: burning Objective Last 24 Hour Vital Signs Date Time Temp Pulse Resp B/P (MAP) Pulse Ox O2 Delivery O2 Flow Rate FiO2 10/10/17 18:47 63 138/43 10/10/17 16:00 97.7 63 20 138/43 94 Nasal Cannula 2.0 97.7 10/10/17 15:10 63 10/10/17 12:00 97.9 79 20 157/49 97 Nasal Cannula 2.0 97.9 10/10/17 11:35 72 10/10/17 10:28 89 133/49 10/10/17 10:27 89 133/49 10/10/17 10:11 89 10/10/17 08:42 71 22 Nasal Cannula 2.0 28 10/10/17 08:42 Nasal Cannula 2.0 28 10/10/17 08:42 95 Nasal Cannula 2.0 28 10/10/17 08:00 97.7 89 20 133/49 95 Nasal Cannula 2.0 97.7 10/10/17 07:41 69 10/10/17 04:00 68 10/10/17 04:00 97.7 60 19 129/62 96 Nasal Cannula 2.0 97.7 10/10/17 00:00 66 10/10/17 00:00 96.5 62 20 136/51 96 Nasal Cannula 2.0 96.5 10/09/17 20:00 97.9 77 19 137/58 94 Nasal Cannula 2.0 97.9 General Appearance: alert Neck: JVD Cardiovascular: irregularly irregular Respiratory/Chest: decreased breath sounds - bases Abdomen: normal bowel sounds, non tender, soft Intake and Output 10/09/17 10/10/17 19:00 07:00 Intake Total 800 ml Output Total 200 ml 700 ml Balance 600 ml -700 ml Intake Oral 800 ml Output Urine Total 200 ml 700 ml Laboratory Tests Test 10/10/17 07:35 Prothrombin Time 33.9 SEC (9.30-11.50) H Prothromb Time International Ratio 3.2 (0.9-1.1) H Sodium Level 136 MMOL/L (136-145) Potassium Level 3.3 MMOL/L (3.5-5.1) L Chloride Level 100 MMOL/L (98-107) Carbon Dioxide Level 25 MMOL/L (21-32) Anion Gap 11 mmol/L (5-15) Blood Urea Nitrogen 34 mg/dL (7-18) H Creatinine 2.3 MG/DL (0.55-1.30) H Estimat Glomerular Filtration Rate mL/min (>60) Glucose Level 120 MG/DL (74-106) H Calcium Level 8.3 MG/DL (8.5-10.1) L Total Bilirubin 0.5 MG/DL (0.2-1.0) Aspartate Amino Transf (AST/SGOT) 24 U/L (15-37) Alanine Aminotransferase (ALT/SGPT) 16 U/L (12-78) Alkaline Phosphatase 120 U/L (46-116) H Total Protein 7.0 G/DL (6.4-8.2) Albumin 2.2 G/DL (3.4-5.0) L Globulin 4.8 g/dL Albumin/Globulin Ratio 0.5 (1.0-2.7) L Microbiology Date/Time Source Procedure Growth Status 10/07/17 20:56 Blood Blood Culture - Preliminary NO GROWTH AFTER 48 HOURS Resulted 10/07/17 20:50 Blood Blood Culture - Preliminary NO GROWTH AFTER 48 HOURS Resulted 10/08/17 19:00 Sputum Gram Stain - Final Complete 10/08/17 19:00 Sputum Sputum Culture - Final NORMAL UPPER RESPIRATORY SAM PRESENT Complete 10/07/17 21:40 Urine,Clean Catch Urine Culture - Final Staphylococcus Epidermidis Complete Puneet Lind MD Oct 10, 2017 19:30
[2017-10-10 20:00] VITALS: BP 146/58
--- NOTE | 2017-10-11 13:42 | Cardiology Report ---
APPROVED REPORT EXAM: Two-dimensional and M-mode echocardiogram with Doppler and color Doppler. INDICATION Abnormal cardiac function study M-Mode DIMENSIONS IVSd1.0 (0.7-1.1cm)Left Atrium (MM)4.9 (1.6-4.0cm) LVDd5.0 (3.5-5.6cm)Aortic Root2.5 (2.0-3.7cm) PWd1.1 (0.7-1.1cm)Aortic Cusp Exc.1.6 (1.5-2.0cm) LVDs3.4 (2.5-4.0cm) PWs1.2 cm Normal left ventricular chamber size, systolic function and wall motion. Left ventricular ejection fraction estimated to be 55-60%. No evidence of left ventricular hypertrophy. Small anterior pericardial effusion. Moderate left atrial enlargement by 2D. Mild right atrial enlargement by 2D. Focal aortic valve sclerosis with adequate cusp excursion. Mild mitral annulus and aortic root calcification. Mitral thickened with decreased cusp excursion suggestive of mitral stenosis. Pulmonic valve not well visualized. Normal tricuspid valve structure. IVC is normal in size minimal collapse with respiration indicate increased RA pressure. Probable pacemaker wire present in the right side chambers. A color flow and spectral Doppler study was performed and revealed: Mild aortic regurgitation. Mild mitral regurgitation. Mitral P1/2 time of 170 m/s is compatible with a mitral valve area of 1.3 cm2 Peak mitral valve diastolic gradient of 20 mmHg and a mean gradient of 8 mmHg with highest velocities of 23 mmgh peak and 10 mmg mean gradient suggesitve of at lease moderate to even severe MS Severe tricuspid regurgitation. Tricuspid systolic velocities suggests peak right ventricular systolic pressure of 54 mmHg Consistent with severe pulmonary hypertension.
--- NOTE | 2017-10-11 14:19 | Cardiology Report ---
APPROVED REPORT EKG Measurement Heart [id number] Atrial fibrillation Septal infarct, age undetermined Abnormal ECG
[2017-10-11] MEDS ORDERED: Warfarin Sodium 2.5mg ORAL SCH (17:00)
[2017-10-12] MEDS ORDERED: valACYclovir HCL 500mg tab ORAL SCH (09:00)
[2017-10-12] MEDS ORDERED: Vitamin D 50,000 units cap ORAL SCH (09:00)
--- NOTE | 2017-10-12 10:39 | Discharge Summary ---
Discharge Summary Discharge Summary _ DATE OF ADMISSION: 10/07/2017 DATE OF DISCHARGE: 10/10/2017 REASON FOR ADMISSION: 87 years old male presented to to ED due t fever and cough. Patient had multiply antibiotic allergy. He denied dyspnea , but complaint of chronic cough . Patient was poor historian. Vital signs reveal fever 101.3 ,blood pressure elevated 156/52. Patient required placement on supplemental oxygen via nasal cannula with pulse oximetry reaching 95%. Elevated troponin 0.092. Pro BNP 31242. EKG revealed no acute ischemic changes. Chest x-ray showed bilateral pleural effusions, right greater than left,; nonspecific lower lobes consolidation: atelectasis versus infiltrate. Interstitial edema. No leukocytosis, stable lactic acid. Urinalysis with evidence of UTI. Hemoglobin 10.1 ,hematocrit 29.6. Potassium 3.0. BUN 28, creatinine 2.2. In emergency department patient was pancultured , started on clindamycin and Cipro ( no fluid resuscitation given CHF) in view of multiple allergies, and admitted to telemetry floor for continuation of care with diagnosis off possible sepsis, possible pneumonia, urinary tract infection, elevated troponin , chronic kidney disease ,metastatic prostate cancer, hypertension ,chronic atrial fibrillation, anemia. CONSULTANTS: driller operator Dr. Lind pulmonary Dr. Macdonald ID specialist Dr. Ramirez director of instruction Dr. Joe telegraphic typewriter installer/oncologist Dr. Brewster urologist Dr. Griffith [facility] COURSE: Patient admitted to telemetry floor. Patient started on nebulizing treatment as needed and supplemental oxygen to keep pulse oximetry above 90%. Empiric antibiotic provided as per ID specialist recommendations. Sputum culture was negative . Property Disposal Officer closely followed. Patient get routine thoracentesis as outpatient, last was done on 10/05/17. Property Disposal Officer discussed the further care of the patient with outpatient credit assessment analyst Dr Schwarz. Volumes and cardiorenal parameters were closely monitored, recommended to keep as negative as possible. Patient will have thoracentesis at [facility] after discharge ,no urgent need for thoracentesis at this time as per credit assessment analyst. Antitussive provided as needed. Patient had a chronic cough . Pulmonary toilet provided as needed. Swallow evaluation done. Diet instituted as per speech therapist recommendations with strict aspiration precautions. Infectious disease doctor closely followed. Urine culture was positive for Staph epidermidis, blood culture were negative, sputum culture was negative. Antibiotic regimen optimized as per ID specialist recommendations Urologist seen and evaluated the patient . Patient had indwelling Montgomery catheter. Patient had a history of metastatic prostate cancer. PSA -119. Urologist recommended to keep Montgomery catheter, change frequently every 3 weeks. He recommended to continue antibiotics and consider cystoscopy as outpatient . Plan of care was discussed extensively with the patient daughter. Psychology Lecturer /oncologist closely followed . Patient had anemia workup which was consistent with anemia of underlying chronic kidney disease. Psychology Lecturer recommended to hold off on iron, given the patient has no iron deficiency. Stool for occult blood was negative. Hemoglobin and hematocrit were closely monitored with goal to keep hemoglobin above 7. Home medications were resumed , including Zytriga. Outpatient follow up with oncologist and urologist was recommended. [employer] Solution Architect closely followed. Echocardiogram revealed preserved ejection fraction 55-60%. No evidence of left ventricular hypertrophy. Pacemaker noted. Severe tricuspid regurgitation and moderate to severe mitral stenosis. Right ventricular systolic pressure of 54 consistent with severe pulmonary hypertension. Evidence of moderate to severe mitral stenosis. Troponin minimally elevated, likely due to renal insufficiency and/or demand related. Low-dose of antiplatelet provided. Anticoagulation with Coumadin for chronic atrial fibrillation continued with dosing per pharmacy to keep INR in therapeutic range. GI prophylaxis provided. Blood pressure was managed with calcium channel mk and beta mk, rate was controlled. Blood pressure remained stable. Recommended to resume diuretic-Edecrin, that patient was taking at home. Lipid panel revealed was stable,.statin was continued. Follow up with usual driller operator Dr. Harrison upon discharge. Physical Therapist Aide seen and evaluated the patient. Renal parameters and electrolytes were closely monitored, electrolytes were corrected as needed. Nephrotoxins were avoided. According to director of instruction patient had acute on chronic renal failure. Supportive care provided. Bowel regimen instituted. Home medications were resumed. Patient stabilized. Fever resolved. Patient was cleared by all consultants for discharge home with outpatient follow up with the driller operator ,outpatient thoracentesis , urologist and oncologist. FINAL DIAGNOSES: Probable sepsis Urinary tract infection with Staph epidermidis Probable pneumonia Recurrent pleural effusion Acute renal failure on chronic kidney disease Congestive heart failure Elevated troponin, secondary to renal insufficiency or and or demand related Chronic atrial fibrillation Pulmonary hypertension Severe tricuspid regurgitation Permanent pacemaker Metastatic prostate CVA BPH Urinary retention Possibly neurogenic bladder DISCHARGE MEDICATIONS: See Medication Reconciliation list. DISCHARGE INSTRUCTIONS: Patient was discharged home. Outpatient follow-up with the driller operator , outpatient thoracentesis , urologist and oncologist. I have been assigned to dictate discharge summary for this account. I was not involved in the patient's management. Angela Isaac NP Oct 12, 2017 10:39
== END 2017-10-10 21:40 | disposition home or self-care (01) | DRG 871 ==
LOC: EDBD 20:27 → EMR 20:50 → 2E 20:51 → EDBEDREQ 21:55 → 2E 23:54
DX: A41.9 Sepsis, unspecified organism (principal); J18.9 Pneumonia, unspecified organism; N39.0 Urinary tract infection, site not specified; N17.9 Acute kidney failure, unspecified; I13.0 Hypertensive heart and chronic kidney disease with heart failure and stage 1 through stage 4 chronic kidney disease, or unspecified chronic kidney disease; C79.9 Secondary malignant neoplasm of unspecified site; C61 Malignant neoplasm of prostate; B95.7 Other staphylococcus as the cause of diseases classified elsewhere; Z88.1 Allergy status to other antibiotic agents; Z88.0 Allergy status to penicillin; Z88.2 Allergy status to sulfonamides; Z88.8 Allergy status to other drugs, medicaments and biological substances; N18.9 Chronic kidney disease, unspecified; I25.10 Atherosclerotic heart disease of native coronary artery without angina pectoris; Z95.0 Presence of cardiac pacemaker; K21.9 Gastro-esophageal reflux disease without esophagitis; E78.5 Hyperlipidemia, unspecified; I36.1 Nonrheumatic tricuspid (valve) insufficiency; I36.0 Nonrheumatic tricuspid (valve) stenosis; Z79.01 Long term (current) use of anticoagulants; N40.1 Benign prostatic hyperplasia with lower urinary tract symptoms; R33.8 Other retention of urine; I48.91 Unspecified atrial fibrillation; D63.1 Anemia in chronic kidney disease; R09.02 Hypoxemia; I27.20 Pulmonary hypertension, unspecified; E03.9 Hypothyroidism, unspecified
CPT/HCPCS: 36415; 71045; 76700; 80048; 80053; 80061; 80162; 81003; 82270; 82550; 82607; 82728; 82746; 82977; 83036; 83540; 83550; 83605; 83735; 83880; 84100; 84153; 84443; 84484; 84550; 85007; 85025; 85610; 85730; 86140; 87040; 87070; 87086; 87181; 87205; 93005; 93306; 94664; 94760; 99285; J8499; S0077